=== PATIENT | female | born 1945 | race Caucasian/White ===

== ENCOUNTER → 2017-10-28 09:15 | Outpatient (CLI) | payer MEDICARE, BC, SELFPAY ==
--- NOTE | 2017-10-28 | DI.CT.S_ITS ---
PROCEDURE: CT LUMBAR SPINE WO CON INDICATIONS: LOW BACK PAIN MULTIPLE SITES TECHNIQUE: Noncontrast 3 mm thick sections acquired from the T12 level to the sacrum. Sagittal and coronal reformats were constructed. For radiation dose reduction, the following was used: automated exposure control. COMPARISON: [facility], CT, THORAX WITHOUT CONTRAST, 09/20/2015, 14:54. FINDINGS: Image quality: Excellent. Bones: No acute vertebral body compression fractures. No suspicious lytic or blastic bony lesions. Central spinal caliber is of normal overall caliber. No pars defects. No significant alignment abnormality is seen. T12-L1: Level within normal limits. L1-L2: Unremarkable. L2-L3: The disc height is relatively well-preserved. Mild generalized disc bulge is seen. No significant neural foraminal or central canal narrowing are seen. L3-L4: The disc height is relatively well-preserved. Kzuw-xp-uiegxlfw disc bulge is seen, which is eccentric to the right. There is mild right-sided and minimal left-sided neural foraminal narrowing seen. Mild central canal narrowing is seen. L4-L5: The disc height is well preserved. Mild to moderate disc bulge is seen. There is moderate bilateral neural foraminal narrowing seen, right worse than left. Moderate central canal narrowing is seen. L5-S1: The disc height is well-preserved. Mild generalized disc bulge is seen. Moderate facet joint hypertrophy is seen. There is moderate right-sided and mild to moderate left-sided neural foraminal narrowing seen. Minimal to mild central canal narrowing is seen. Soft tissues: No retroperitoneal masses or hematomas. Visualized aorta is normal in caliber. 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 IMPRESSION: Lumbar spine degenerative changes are seen, which are most prominent at the L4-L5 and L5-S1 levels. Dictated by: Jose Guadalupe Bernard M.D. on 10/28/2017 at 9:36 Approved by: Jose Guadalupe Bernard M.D. on 10/28/2017 at 9:42
== END ==
PROVIDERS: Family Provider Family Medicine; PCP Family Medicine; Visit Provider Physical Medicine & Rehabilitation
DX: M51.36 Other intervertebral disc degeneration, lumbar region (principal); M51.37 Other intervertebral disc degeneration, lumbosacral region
CPT/HCPCS: 72131

== ENCOUNTER 2018-04-01 08:52 | Day surgery (SDC) | payer MEDICARE, BC, SELFPAY ==
--- NOTE | 2018-03-26 18:54 | PM.PREOP ---
Pre-operative Note Interval Note History & Physical reviewed/Exam performed by Physician: Yes Changes to H&P: No
--- NOTE | 2018-04-01 08:36 | P.OP_ITS ---
Operative Date/Time/Diagnoses Date of procedure: 04/01/18 Time of procedure: 11:45 Procedure & Clinicians Procedure: Date of service:March Preoperative diagnoses: 1. Bilateral upper lid dermatochalasis. 2. Bilateral lower lid ectropion. 3. Cardiac pacemaker on anticoagulant. 4. Anxiety. Postoperative diagnoses: 1. Bilateral upper lid dermatochalasis 2. 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 Procedure: Bilateral upper blepharoplasty Surgeon: Emily Tello MD Complications:None Specimen: None Blood loss: Less than 3 mL Anesthesia: Local infiltration with monitored standby. Anesthesiologist: Prieto Roldan M.D. Indications: Bilateral upper lids obstructing superior vision. Preoperative external photographs taken and loss of vision to within 2 mm of marginal light reflex. Functional surgery. Procedure: In the preoperative holding area the amount skin and subcutaneous tissue to be removed was marked with indelible ink. The contours were carefully checked for symmetry and planned procedure discussed with the patient. The patient was taken to the operating room. IV sedation was given. Proparacaine drops were placed in both eyes for comfort. Local infiltration of anesthetic 2.5 cc into each upper lid, consisting of 1% xylocaine with epinephrine, normal saline and 1 cc hyluronidase was placed. This was then supplemented with full strength 2% xylocaine with epinephrine, 0.5% bupivacaine , and 1 cc hyalurondase. The face was prepped in an open manner. Attention was placed to the right upper lid. Using the previous mancia a number 15. Bard-Lito blade was used to incise a skin muscle flap. The flap was lifted and removed. Cautery was applied as needed. Contouring of the muscle belly was also performed. Exploration of the nasal and preoperneurotic fat pads were performed removal and contouring with hemostat and scissors as well as cautery were performed. The lid was then closed with running and interrupted 6 0 Vicryl sutures. Same procedure was repeated for the left upper lid. The Betadine was removed. Maxitrol ointment was placed to suture line. She returned to recovery room in stable condition. Instructions for postoperative cold packs were reviewed. Attention was placed to the lateral canthus. A 15 blade was used to make a 1 cm lateral canthotomy. The inferior canthal tendon was lysed with scissors. A tarsal strip was formed with removal of the anterior and posterior lamella and shortening of 1 mm. A superior 1 mm lid resection was also done. A 4 0 Mersilene double-armed was placed through the tarsal strip and then anchored in a double-armed fashion through the periosteum with good position. Multiple knots were tied. The lateral canthus was then reapproximated using 6 0 Vicryl interrupted sutures. The inferior punctum was also examined. It was very small and stenotic. A punctal dilator was used to enlarge it and a 3 snip procedure with scissors was performed to anatomically enlarge the punctum. It was patent to the nose. This procedure was done in identical fashion to both lids. There was minimal blood loss of less than 3 cc. She did require a bed weiss twice during the procedure for urinary discomfort. This relieved her symptoms and the procedure continued. Maxitrol ointment was placed on both eyes and she returned recovery room in stable condition. Emily Tello MD.
[2018-04-01 09:29] VITALS: BP 196/84; PULSE 73; RESP 16; TEMP 36.6; O2SAT 97
[2018-04-01 09:31] VITALS: BMI 13.6
[2018-04-01] MEDS: LACTATED RINGERS 1,000 ML 42 ML IV (09:52)
[2018-04-01] MEDS: LIDOCAINE 2% W/EPI INJ 20 ML INJ (12:17)
[2018-04-01] MEDS: LIDOCAINE 2% W/EPI 3 ML, BUPIVACAINE 0.5% (PF) 2 ML, HYALURONIDASE 150 UNIT INJ (12:17)
[2018-04-01] MEDS: LIDOCAINE 1% W/EPI 3 ML, SODIUM CHLORIDE 0.9% 2 ML, HYALURONIDASE 150 UNIT INJ (12:17)
[2018-04-01] MEDS: PROPARACAINE 0.5% OPHTH SOL 2 DROPS EYE-BOTH (12:24)
--- NOTE | 2018-04-01 13:23 | SUR.OPER ---
Patient urinated with bedpan twice during procedure.
[2018-04-01 13:44] VITALS: BP 172/72; PULSE 76; RESP 16; TEMP 36.6; O2SAT 95
== END 2018-04-01 14:12 | disposition home or self-care (01) ==
LOC: OR 08:53
PROVIDERS: Family Provider Family Medicine; PCP Family Medicine; Visit Provider Ophthalmology
PROC: (CPT 67917; principal; 2018-04-01 10:45)
PROC: (CPT 67917; 2018-04-01 10:45)
DX: H02.834 Dermatochalasis of left upper eyelid (principal); H02.831 Dermatochalasis of right upper eyelid; H02.102 Unspecified ectropion of right lower eyelid; H02.105 Unspecified ectropion of left lower eyelid; Z95.0 Presence of cardiac pacemaker; Z79.01 Long term (current) use of anticoagulants; F41.9 Anxiety disorder, unspecified; R42 Dizziness and giddiness
CPT/HCPCS: 67917; 15823; J2250; J2704; J3470

== ENCOUNTER → 2018-04-30 15:49 | Outpatient (CLI) | payer MEDICARE, BC, SELFPAY | PROVIDERS: Family Provider Family Medicine; PCP Family Medicine; Visit Provider Ophthalmology | DX: Z48.02 Encounter for removal of sutures (principal) | CPT/HCPCS: 87070; 87077; 87147; 87186; 87205 ==

== ENCOUNTER → 2018-06-22 14:07 | Outpatient (CLI) | payer MEDICARE, BC, SELFPAY | PROVIDERS: Family Provider Family Medicine; PCP Family Medicine; Visit Provider Ophthalmology | DX: Z22.322 Carrier or suspected carrier of Methicillin resistant Staphylococcus aureus (principal) | CPT/HCPCS: 87081 ==

== ENCOUNTER 2019-02-24 15:27 | Inpatient (IN) | payer MEDICARE, BC, SELFPAY ==
[2019-02-24] VITALS (9 sets, daily range): BP systolic 157–194; BP diastolic 70–98; PULSE 73–96; RESP 15–20; TEMP 36.9–37.1; O2SAT 91–100; BMI 28.7
--- NOTE | 2019-02-24 15:37 | DI.CT.S_ITS ---
PROCEDURE: CT HEAD/BRAIN WO CON INDICATIONS: SLURRED SPEECH TECHNIQUE: Noncontrast 4.5 mm thick angled axial sections acquired from the foramen magnum to the vertex, with coronal and sagittal reformats. For radiation dose reduction, the following was used: automated exposure control, adjustment of mA and/or kV according to patient size. COMPARISON: None. FINDINGS: Image quality: Excellent. CSF spaces: Basal cisterns are patent. No extra-axial fluid collections. Ventricles are normal in size and shape. Brain: No midline shift. No intracranial masses or hemorrhage. Cunha-white matter interface is normal for age except that the frontoparietal junction on the left where a region of abnormal low attenuation is present extending to the cortex with loss of cunha-white differentiation, with a maximal axial dimension estimated at up to almost 3 cm in diameter, with a craniocaudad extent of 4.2-5.4 cm. This has an appearance of a subacute area of ischemic injury, with a small focus of calcium in its inferior aspect. This may represent embolic calcified plaque in this clinical circumstance.. Skull and face: Calvarium and visualized facial bones are intact, without suspicious lesions. Sinuses: Visualized sinuses and mastoids are clear. IMPRESSION: Subacute stroke left hemisphere, within the parietal lobe cortex and extending into the deep white matter inferiorly. As noted there is a small focus of calcification associated with the inferior border of this area of ischemic injury, potentially an embolic calcified plaque fragment. Dictated by: Aaron Pineda M.D. on 02/24/2019 at 16:01 Approved by: Aaron Pineda M.D. on 02/24/2019 at 16:05
--- NOTE | 2019-02-24 15:40 | DI.CT.S_ITS ---
PROCEDURE: CT ANGIO HEAD AND NECK INDICATIONS: expressive aphasia TECHNIQUE: Pre-contrast 4.5 mm thick sections acquired from the foramen magnum to the vertex. After the administration of intravenous contrast, 1 mm thick sections acquired from the aortic arch through the [place]. Post-contrast 4.5 mm thick sections then re-acquired from the foramen magnum to the vertex. 3-dimensional rbkqckb-yfbkcmsau-zweespzvef (MIP) and/or volume rendering reformats were acquired of the central intracranial vasculature and neck separately. COMPARISON: [facility], CT, CT HEAD/BRAIN WO CON, 02/24/2019, 15:41. FINDINGS: Image quality: Excellent. BRAIN: CSF spaces: Ventricles are normal in size and shape. Basal cisterns are patent. No extra-axial fluid collections. Brain: No midline shift. No intracranial bleeds or masses. Cunha-white matter interface appears unchanged from the CT scanning performed without contrast earlier today which identified an area of subacute stroke within the anterior parietal lobe, with an associated punctate calcification at its inferior border suspicious for representing embolic calcified plaque in this clinical circumstance. No hemorrhage in this area of stroke has developed. Skull and face: Calvarium and facial bones appear intact, without suspicious lesions. Orbits appear normal. Sinuses: Sinuses and mastoids are clear. HEAD CT ANGIOGRAPHY: Anterior circulation: Intracranial internal carotid arteries are normal in size and flow. The flow within the paired anterior cerebral arteries is normal and symmetric. The flow within the middle cerebral arteries is normal and symmetric. The anterior communicating artery is seen. No aneurysms are seen. The focus of calcium described above and during the prior noncontrast CT scanning at the inferior aspect of the area of subacute stroke can be identified by this study and on CT angiographic imaging is seen to exactly superimposed on the course of a vessel see series 12 image 17. Posterior circulation: Visualized portions of the vertebral arteries demonstrate normal caliber, and join to form a normal appearing basilar artery. Flow within the posterior cerebral arteries is normal and symmetric. No aneurysms are seen. NECK CT ANGIOGRAPHY: Carotid system: The great vessels demonstrate a conventional anatomy as they arise from the aortic arch. The origins of the common carotid arteries appear patent. The common carotid arteries demonstrate normal caliber and courses. The bifurcation regions are both widely patent. The internal carotid arteries demonstrate normal calibers and courses. Posterior circulation: The origins of the vertebral arteries both appear widely patent. The more superior extracranial portions of both vertebral arteries also demonstrate normal courses and calibers. They join to form a normal appearing basilar artery. Soft tissues: Visualized neck soft tissues demonstrate no suspicious abnormalities. Bones: No suspicious bony lesions. Visualized cervical spine appears normally aligned. IMPRESSION: Subacute stroke as was previously identified on noncontrast imaging. No area of carotid or vertebral arterial stenosis is found. Minimal calcific plaquing at the carotid arteries bilaterally. As discussed above there is a single focus of calcium measuring only approximately 1.5-2 mm in diameter exactly superimposed on the course of a contrast-enhanced blood vessel leading to the calcification, consistent with a small embolic focus of calcific plaque. This is located at the inferior border of the area of ischemic injury. No additional focus of arterial bland or calcific embolus is found. No intracranial hemorrhage. No appreciable mass effect at this time. Any quantitative measurements of stenosis were performed using NASCET criteria. Dictated by: Aaron Pineda M.D. on 02/24/2019 at 17:38 Approved by: Aaron Pineda M.D. on 02/24/2019 at 17:47
[2019-02-24 16:09] LABS: Add Manual Diff / Slide Review NO; Basophils Absolute Auto 0 /uL (0-100); Basophils Percent Auto 0.5 % (0-2); Eosinophils Absolute Auto 100 /uL (0-450); Eosinophils Percent Auto 1.2 % (2-4); Hematocrit 44.6 % (36-46); Hemoglobin 15.5 g/dL (12.0-16.0); Lymphocytes Absolute Auto 2400 /uL (1100-4500); Lymphocytes Percent Auto 39.5 % (25-40); Mean Corpuscular HGB Conc 34.7 % (30-36); Mean Corpuscular Hemoglobin 32.5 PG (26-34); Mean Corpuscular Volume 93.7 fL (80-100); Monocytes Absolute Auto 600 /uL (0-900); Monocytes Percent Auto 10.3 % (3-14); Neutrophils Absolute Auto 2900 /uL (1500-7000); Neutrophils Percent Auto 48.5 % (50-75); Platelet Count 137 X10^3/uL (150-400); Red Blood Cell Count 4.76 X10^6/uL (4.0-5.2); Red Cell Distribution Width 12.3 % (11.6-14.8)
--- NOTE | 2019-02-24 16:20 | ED_ITS ---
HPI - Neuro Symptoms/Deficit General Chief Complaint: Neuro Symptoms/Deficit Stated Complaint: spouse concerned of speech deficits and stroke Time Seen by Provider: 02/24/19 15:39 Source: patient and family Mode of arrival: Ambulatory Limitations: no limitations History of Present Illness HPI Narrative: This is a 73-year-old female who comes in with complaint of speech deficits and issues. Patient and her noticed this morning at about 11:00 a.m. that she was having hard time with her words. Her describes that she could not express herself very well and she would have to do word searching occasionally get words wrong. States sort of abdomen flow throughout today and they finally came in today because it was not improving. Patient denies any headache, no vision changes, no chest pain or shortness of breath, no nausea, no vomiting she denies any numbness, tingling or weakness in her extremities. Her did not notice any issues with movement, no facial droop or other changes besides the expressive aphasia. She has a history of a pacemaker, she takes metoprolol daily. She does not take any blood thinners. Denies any other history besides her pacemaker placement. No tobacco, occasional alcohol, no illicit. Primary care is Dr. Jacobo Castillo. On Anticoagulants: No Related Data Home Medications Medication Instructions Recorded Confirmed dronedarone [Multaq] 400 mg PO DAILY 04/01/18 02/24/19 fluticasone propionate 1 spray INTRANASAL PRN PRN 04/01/18 02/24/19 loperamide [Imodium A-D] 2 cap PO Q2-4H PRN 04/01/18 02/24/19 conj estrog-medroxyprogest kayla 1 tab PO DAILY 02/24/19 02/24/19 [Premphase] Allergies Allergy/AdvReac Type Severity Reaction Status Date / Time Penicillins Allergy Severe Swelling Verified 04/01/18 09:28 Review of Systems Review of Systems ROS Unobtainable: All systems reviewed & are unremarkable except as noted in HPI and below Patient History Medical History (Updated 02/24/19 @ 16:39 by Maya Latif DO) Pacemaker (Acute) Social History household members: spouse Smoking Status: Former smoker Smoking Status: Former smoker Exam Narrative Exam Narrative: GEN: well nourished, well appearing female, alert and oriented x 3, patient appears to be in mild distress. HEENT: Atraumatic, pupils are equal round reactive to light, extraocular movements are intact, nares are clear, TMs are clear with no fluid, there is no conjunctival pallor. Throat is clear without any exudates, erythema, tonsillar enlargement or uvular deviation, no facial droop HEART: Regular rate and rhythm without murmur, clicks, rubs. Pulses are equal in upper and lower extremities LUNGS:Lungs clear to auscultation, no wheezes, rales, crackles, chest moves symmetrically ABD:bowel sounds normal, soft, non-tender, no guarding, rebound, rigidity, no masses noted, no hepatosplenomegaly :No CVA tenderness MSCL: Non-tender, no muscle atrophy, muscles strength 5/5 upper and lower extremities, full range of motion, normal gait NEURO:CN 2-12 intact, sensation normal, reflexes 2/4 upper and lower extremities. finger nose finger test normal, heel lam test normal Initial Vital Signs Initial Vital Signs: Vital Signs Temperature 98.4 F 02/24/19 15:31 Pulse Rate 81 02/24/19 15:31 Respiratory Rate 16 02/24/19 15:31 Blood Pressure 188/86 H 02/24/19 15:31 Pulse Oximetry 100 02/24/19 15:31 Scores NIH Stroke Scale Level of Conciousness: Alert, keenly responsive Ask month/age: Answers both questions correctly. Open/close eyes, close hand: Performs both tasks correctly Best gaze horizontal: Normal Visual mccray: No visual loss Facial palsy: Normal symetrical movement Left arm drift: No drift for full 10 sec Right arm drift: No drift for full 10 sec Left leg drift: No drift for full 10 sec Right leg drift: No drift for full 10 sec Limb ataxia: Absent Sensory on face/arms/legs: Normal, no sensory loss Best language: Mild to moderate, slurs some words Dysarthria: Normal Extinction or inattention: No abnormality Total NIH Stroke scale score: 1 Course Orders Ordered: ED Orders 02/24/19 15:37 CT head/brain wo con Stat 02/24/19 15:39 EKG-12 Lead Stat 02/24/19 15:40 CT angio head and neck Stat 02/24/19 16:00 Basic Metabolic Panel Stat Complete Blood Count AUTO DIFF Stat Partial Thromboplastin Time Stat Prothrombin Time INR Stat Troponin I Stat Sodium Chloride (Normal Saline 0.9%) 1,000 mls @ 150 mls/hr IV CONT KIM Last Infusion: 02/24/19 19:26 Dose: 150 mls/hr Documented by: Admin: 02/24/19 16:28 Dose: 150 mls/hr Documented by: TANGELA Discontinued Medications Aspirin (Aspirin Chew) 324 mg PO NOW ONE Stop: 02/24/19 16:38 Last Admin: 02/24/19 16:54 Dose: 324 mg Documented by: ANGEL Dextrose ([email or web address]) 25 gm IV NOW ONE Stop: 02/24/19 16:17 Last Admin: 02/24/19 16:28 Dose: 25 gm Documented by: TANGELA Vital Signs Vital signs: Vital Signs - 8 hr 02/24/19 15:31 02/24/19 16:00 02/24/19 17:22 Temperature 98.4 F Pulse Rate 81 82 80 Respiratory Rate 16 16 18 Blood Pressure 188/86 H Blood Pressure [Left Arm] 187/72 H 181/73 H Pulse Oximetry 100 100 100 02/24/19 17:35 02/24/19 18:00 02/24/19 18:30 Temperature Pulse Rate 96 H 75 73 Respiratory Rate 17 16 15 Blood Pressure Blood Pressure [Left Arm] 194/86 H 184/73 H 168/81 H Pulse Oximetry 91 96 98 02/24/19 19:00 Temperature Pulse Rate 84 Respiratory Rate 19 Blood Pressure Blood Pressure [Left Arm] 178/70 H Pulse Oximetry 100 MDM - Neuro Symptoms/Deficit Lab Data Attestation: I reviewed the patient's lab results. Result diagrams: 02/24/19 16:00 02/24/19 16:00 Labs: Lab Results 02/24/19 02/24/19 02/24/19 Range/Units 16:00 16:00 16:00 WBC 6.0 (4.5-11.0) X10^3/uL RBC 4.76 (4.0-5.2) X10^6/uL Hgb 15.5 (12.0-16.0) g/dL Hct 44.6 (36-46) % MCV 93.7 (80-100) fL MCH 32.5 (26-34) PG MCHC 34.7 (30-36) % RDW 12.3 (11.6-14.8) % Plt Count 137 L (150-400) X10^3/uL Neut % (Auto) 48.5 L (50-75) % Lymph % (Auto) 39.5 (25-40) % [place] % (Auto) 10.3 (3-14) % Eos % (Auto) 1.2 L (2-4) % Baso % (Auto) 0.5 (0-2) % Neut # (Auto) 2900 (0876-6309) /uL Lymph # (Auto) 2400 (6895-3486) /uL [place] # (Auto) 600 (0-900) /uL Eos # (Auto) 100 (0-450) /uL Baso # (Auto) 0 (0-100) /uL PT 11.0 (10.1-12.7) SECONDS INR 1.0 (0.9-1.3) APTT 28 (26.4-36.2) SECONDS Sodium 141 (137-145) mmol/L Potassium 3.7 (3.4-5.1) mmol/L Chloride 104 (98-107) mmol/L Carbon Dioxide 28 (22-32) mmol/L BUN 14 (7-17) mg/dL Creatinine 0.70 (0.52-1.04) mg/dL Estimated GFR > 60.0 (>60) mL/min BUN/Creatinine Ratio 20.0 (6-22) Glucose 89 (80-110) mg/dL Calcium 9.4 (8.4-10.2) mg/dL Troponin I 0.019 (0.01-0.034) ng/mL Point of Care Testing Glucose POC [address] scan - head: Radiologist's impression: Chart Viewer Diagnostics DATE TYPE STATUS AUTHOR Hx 02/24/19 15:37 Aaron Pineda 10/28/17 00:00 Jose Guadalupe Bernard Merry 73, F0 1945 [facility], [facility] ED R06 90.718kg Neuro Symptoms/Deficit Search Chart No Data to Display Swelling No Data to Display Today 15:31 Cathleen Whitney F [address] [address] [address] Scan Report Signed Patient: Khurram Whitney#: [id number] : 6Acct:[id number] Age/Sex: 73 / FDate of Service: 02/24/19 Loc: ED Accession Number: [id number] Procedure: CT head/brain wo con Ordering Provider: Maya Latif D.O. PROCEDURE: CT HEAD/BRAIN WO CON INDICATIONS: SLURRED SPEECH TECHNIQUE: Noncontrast 4.5 mm thick angled axial sections acquired from the foramen magnum to the vertex, with coronal and sagittal reformats. For radiation dose reduction, the following was used: automated exposure control, adjustment of mA and/or kV according to patient size. COMPARISON: None. FINDINGS: Image quality: Excellent. CSF spaces: Basal cisterns are patent. No extra-axial fluid collections. Ventricles are normal in size and shape. Brain: No midline shift. No intracranial masses or hemorrhage. Cunha-white matter interface is normal for age except that the frontoparietal junction on the left where a region of abnormal low attenuation is present extending to the cortex with loss of cunha-white differentiation, with a maximal axial dimension estimated at up to almost 3 cm in diameter, with a craniocaudad extent of 4.2-5.4 cm. This has an appearance of a subacute area of ischemic injury, with a small focus of calcium in its inferior aspect. This may represent embolic calcified plaque in this clinical circumstance.. Skull and face: Calvarium and visualized facial bones are intact, without suspicious lesions. Sinuses: Visualized sinuses and mastoids are clear. IMPRESSION: Subacute stroke left hemisphere, within the parietal lobe cortex and extending into the deep white matter inferiorly. As noted there is a small f ocus of calcification associated with the inferior border of this area of ischemic injury, potentially an embolic calcified plaque fragment. Dictated by: Aaron Pineda M.D. on 02/24/2019 at 16:01 Approved by: Aaron Pineda M.D. on 02/24/2019 at 16:05 CTA head and neck: Radiologist's impression: [place] [address] CT Scan Report Signed Patient: Khurram Whitney#: [id number] : 6Acct:[id number] Age/Sex: 73 / FDate of Service: 02/24/19 Loc: ED Accession Number: [id number] Procedure: CT angio head and neck Ordering Provider: Maya Latif D.O. PROCEDURE: CT ANGIO HEAD AND NECK INDICATIONS: expressive aphasia TECHNIQUE: Pre-contrast 4.5 mm thick sections acquired from the foramen magnum to the vertex. After the administration of intravenous contrast, 1 mm thick sections acquired from the aortic arch through the [place] of [place]. Post-contrast 4.5 mm thick sections then re- acquired from the foramen magnum to the vertex. 3-dimensional fesccyn-dufejrnbs-pggvtflhjj (MIP) and/or volume rendering reformats were acquired of the central intracranial vasculature and neck separately. COMPARISON: [facility], CT, CT HEAD/BRAIN WO CON, 02/24/2019, 15:41. FINDINGS: Image quality: Excellent. BRAIN: CSF spaces: Ventricles are normal in size and shape. Basal cisterns are patent. No extra-axial fluid collections. Brain: No midline shift. No intracranial bleeds or masses. Cunha-white matter interface appears unchanged from the CT scanning performed without contrast earlier today which identified an area of subacute stroke within the anterior parietal lobe, with an associated punctate calcification at its inferior border suspicious for representing embolic calcified plaque in this clinical circumstance. No hemorrhage in this area of stroke has developed. Skull and face: Calvarium and facial bones appear intact, without suspicious lesions. Orbits appear normal. Sinuses: Sinuses and mastoids are clear. HEAD CT ANGIOGRAPHY: Anterior circulation: Intracranial internal carotid arteries are normal in size and flow. The flow within the paired anterior cerebral arteries is normal and symmetric. The flow within the middle cerebral arteries is normal and symmetric. The anterior communicating artery is seen. No aneurysms are seen. The focus of calcium described above and during the prior noncontrast CT scanning at the inferior aspect of the area of subacute stroke can be identified by this study and on CT angiographic imaging is seen to exactly superimposed on the course of a vessel see series 12 image 17. Posterior circulation: Visualized portions of the vertebral arteries demon strate normal caliber, and join to form a normal appearing basilar artery. Flow within the posterior cerebral arteries is normal and symmetric. No aneurysms are seen. NECK CT ANGIOGRAPHY: Carotid system: The great vessels demonstrate a conventional anatomy as they arise from the aortic arch. The origins of the common carotid arteries appear patent. The common carotid arteries demonstrate normal caliber and courses. The bifurcation regions are both widely patent. The internal carotid arteries demonstrate normal calibers and courses. Posterior circulation: The origins of the vertebral arteries both appear widely patent. The more superior extracranial portions of both vertebral arteries also demonstrate normal courses and calibers. They join to form a normal appearing basilar artery. Soft tissues: Visualized neck soft tissues demonstrate no suspicious abnormalities. Bones: No suspicious bony lesions. Visualized cervical spine appears normally aligned. IMPRESSION: Subacute stroke as was previously identified on noncontrast imaging. No area of carotid or vertebral arterial stenosis is found. Minimal calcific plaquing at the carotid arteries bilaterally. As discussed above there is a single focus of calcium measuring only approximately 1.5-2 mm in diameter exactly superimposed on the course of a contrast-enhanced blood vessel leading to the calcification, consistent with a small embolic focus of calcific plaque. This is located at the inferior border of the area of ischemic injury. No additional focus of arterial bland or calcific embolus is found. No intracranial hemorrhage. No appreciable mass effect at this time. Any quantitative measurements of stenosis were performed using NASCET criteria. Dictated by: Aaron Pineda M.D. on 02/24/2019 at 17:38 Approved by: Aaron Pineda M.D. on 02/24/2019 at 17:47 ECG Data Attestation: I personally reviewed and interpreted this ECG as follows: Interpretation: Paced rhythm, rate of 79 P are 185 QRS of 142 and QTC of 450. MDM Narrative Medical decision making narrative: Patient comes in outside window for tPA initially and hypoglycemic. Patient was given sugar and glucose improved, glucose continues to maintain in the 70's. Patient's CT shows a subacute infarct chewing she is not a tPA candidate at all. Patient is slightly hypertensive. CTA was sent to [facility] and reviewed with tele stroke and Dr. Resendiz, there is no obvious occlusion and patient is not a code IR candidate at this point so he does not feel she needs transfer. He would recommend typical workup for CVA and that would be appropriate for patient to stay here. I spoke with Dr. Sawant who accepts for observation. Patient received asa 325mg in department. Discharge Plan Departure Patient Disposition: Admitted as Observation Clinical Impression: Cerebrovascular accident, Hypoglycemia Discharge Date/Time: 02/24/19 19:26 Referrals: Jacobo Castillo MD [Primary Care Provider] - Admit Date/Time: 02/24/19 19:11 Admit Provider: Juan Ramon Sawant
[2019-02-24 16:21] LABS: PTT Partial Thromboplastin Tim 28 SECONDS (26.4-36.2)
[2019-02-24 16:23] LABS: Blood Urea Nitrogen 14 mg/dL (7-17); Calcium 9.4 mg/dL (8.4-10.2); Carbon Dioxide 28 mmol/L (22-32); Chloride 104 mmol/L (98-107); Estimated Glomerular Filt Rate > 60.0 mL/min (>60); Glucose 89 mg/dL (80-110); Potassium 3.7 mmol/L (3.4-5.1); Sodium 141 mmol/L (137-145)
[2019-02-24 16:25] LABS: HEMOLYSIS 53 (0-50)
[2019-02-24] MEDS: DEXTROSE 50 % IN WATER 25 GM/50 ML SYRINGE IV (16:28)
[2019-02-24] MEDS: SODIUM CHLORIDE 0.9% 1,000 ML 150 ML IV (16:28)
[2019-02-24 16:35] LABS: Troponin I 0.019 ng/mL (0.01-0.034)
[2019-02-24] MEDS: ASPIRIN 81 MG CHEW TAB 324 MG PO (16:54)
--- NOTE | 2019-02-24 17:28 | PC.NURSE ---
Significant other: Baljit Shepherd [phone]
--- NOTE | 2019-02-24 19:54 | DI.ECHO.S_ITS ---
[facility]---------+ [facility] +---------+ : : [address] [place] : : : : [id number] : : : : Phone: [phone] Echocardiogram Report + + :Name: MYRTLE LYNCH Study Date: 02/25/2019 Height: 70 in : :[facility] Weight: 200 lb : : Gender: Female BSA: 2.1 m2 : :: 1945 Age: 73 yrs BP: 154/72 mmHg: :Reason For Study: CVA : : Performed By: [facility] Staff : :Referring: RAMIREZ LLYE : + + Interpretation Summary This is technically difficult study. Left ventricular wall thickness is moderately increased. The left ventricular ejection fraction is normal. There is mild apical hypokinesis which appears to be related to RV pacing. There are no other obvious focal wall motion abnormalities. There is no thrombus. Diastolic parameters suggest a relaxation abnormality of the left ventricle, consistent with probable normal filling pressures. The right ventricle is normal in size and function. Moderate MAC. No hemodynamically significant valvular abnormalities. -Overall this echo shows changes related to hypertensive heart disease without obvious cardiac source of embolism. Procedure: A two-dimensional transthoracic echocardiogram with color flow and Doppler was performed. The study quality was technically adequate. A contrast injection of Definity was performed to improve assessment of LV function. There is no prior echocardiogram noted for this patient. The patient has a paced rhythm. Left Ventricle: The left ventricle is normal in size. Left ventricular wall thickness is moderately increased. There is no thrombus. The ejection fraction is estimated to be 55-60%. The left ventricular ejection fraction is normal. There is a mild dyssynchronous contraction pattern due to the paced rhythm. There are no other obvious focal wall motion abnormalities. There is mild apical hypokinesis which appears to be related to RV pacing. Diastolic parameters suggest a relaxation abnormality of the left ventricle, consistent with probable normal filling pressures. Right Ventricle: The right ventricle is normal in size and function. There is a pacemaker lead in the right ventricle. Atria: The left atrium is mildly dilated. Right atrial size is normal. There is no Doppler evidence for an interatrial shunt. Mitral Valve: The mitral valve leaflets appear mildly thickened, but open well. There is moderate mitral annular calcification. There is trace mitral regurgitation. Aortic Valve: The aortic valve opens well. The aortic valve is not well visualized. The aortic valve is grossly normal. No aortic regurgitation is present. Tricuspid Valve: The tricuspid valve is normal in structure and function. There is trace tricuspid regurgitation. Pulmonary artery pressures cannot be estimated because of the lack of a measurable TR jet velocity but the IVC suggests a CVP of around 3 mmHg. Pulmonic Valve: The pulmonic valve is not well visualized. There is trace pulmonic regurgitation. Great Vessels: The aortic root is normal size. The dimensions of the ascending aorta are normal. The pulmonary artery is normal size. The IVC is of normal diameter and collapses greater than 50% with a sniff. This suggests a low right atrial pressure of 3 mm Hg. Pericardium/ Pleura There is a trivial pericardial effusion noted. There is no pleural effusion. MMode/2D Measurements & Calculations LVIDd: 4.0 cm LVOT diam: 2.0 cm LVIDs: 2.9 cm Ao root diam: 2.9 cm FS: 28.6 % Aortic Jxn: 2.5 cm EPSS: 0.74 cm IVSd: 1.5 cm LVPWd: 1.4 cm LV neal. diameter/BSA (cm/m^2): 1.9 LV sys. diameter/BSA (cm/m^2): 1.4 LA A2 area: 21.4 cm2 RA long axis: 5.5 cm LA A4 area: 18.2 cm2 RA area: 15.9 cm2 LA length (vol): 4.6 cm RA vol: 39.2 ml LA vol: 71.3 ml RA : 18.8 ml/m2 LA vol index: 34.2 ml/m2 Doppler Measurements & Calculations Ao V2 max: 129.0 cm/sec LVOT Max Han: 95.2 cm/sec Ao V2 mean: 97.0 cm/sec LV V1 max P.6 mmHg Ao max P.7 mmHg LV V1 VTI: 21.3 cm Ao mean P.1 mmHg DAVE(I,D): 2.6 cm2 Ao V2 VTI: 26.9 cm DAVE(V,D): 2.4 cm2 sev ratio: 0.79 DAVE indexed to BSA (cm^2/m^2): 1.2 MV E max han: 72.9 cm/sec TR max han: 214.1 cm/sec MV A max han: 116.0 cm/sec TR max P.3 mmHg MV E/A: 0.63 PA V2 max: 81.8 cm/sec Med Peak E' Han: 5.4 cm/sec PA V2 mean: 58.3 cm/sec E/E' med: 13.6 PA mean P.5 mmHg Lat Peak E' Han: 5.5 cm/sec PA Accel Time: 0.09 sec E/E' lat: 13.1 E/e' average: 13.4 MV dec time: 0.23 sec SV(LVOT): 69.4 ml Electronically signed by: Fox Salinas M.D. on Reading Physician:02/25/2019 04:19 PM
[2019-02-24] MEDS: SODIUM CHLORIDE 0.9% 1,000 ML 100 ML IV (20:02)
[2019-02-24 20:10] LABS: Magnesium 2.2 mg/dL (1.6-2.3)
--- NOTE | 2019-02-24 22:02 | PM.HP.1 ---
History of Present Illness History of Present Illness Date Patient Seen: 02/24/19 Time Patient Seen: 21:50 Chief complaint: spouse concerned of speech deficits and stroke Narrative: Ms Cathleen Whitney is a 73-year-old right handed female with a history significant for atrial fibrillation, status post pacemaker implantation, on hormone replacement therapy who presents to to the emergency department for difficulty speaking. The patient's noticed difficulty with word finding this morning at 11:00 a.m. that persisted without improvement prompting him to bring her to the ER at 3:39 p.m.. The patient did report an episode chest pain last night for which she did not seek attention. She denies complaints headaches or vision changes has no chest pain at this time and denies palpitations. She has no nausea vomiting or abdominal pain. She describes no difficulty walking or complaints of numbness or tingling. She denies changes in bowel or bladder habits. Upon arrival to the ER the patient had a temperature of 98.4?, heart rate of 81, hypertensive 188/86, respirations 16 saturating 100% on room air. The patient underwent a CT of the head followed by a CT angio of the head and neck which identifies a sub acute CVA of the left anterior parietal lobe extending deep into the white matter inferiorly with an embolic appearing calcified plaque. The patient had glucose evaluated upon arrival which is found to be 62 for which she received 25 g of dextrose IV. On CBC she has a white count of 6.0, hemoglobin of 15.5 and hematocrit of 446 and platelets of 113. On coagulation she has a PT of 11.0 with INR 1.0 and PTT of 28. Her electrolytes are all within limits with a BUN of 14 and creatinine 0.7. Troponin is evaluated and found to be 0.019 had EKG which reveals sinus rhythm with a rate of 79 with ventricular pacing. The patient is given aspirin 324 mg p.o. in the ER. She is admitted to the medicine service for further evaluation of stroke. Patient History Medical History (Updated 02/24/19 @ 22:12 by AQUILINO Jones) Pacemaker (Acute) Paroxysmal atrial fibrillation (Acute) Surgical History (Updated 02/24/19 @ 22:12 by AQUILINO Jones) History of permanent cardiac pacemaker placement (Acute) Family & Social History Family History (Updated 02/24/19 @ 22:13 by AQUILINO Jones) Father Cancer Mother Parkinson's disease Sister Cancer Social History: household members spouse Prior Living Arrangements House Safety & Behavioral: Feels Safe in Current Yes Environment Been Physically Hurt or No Threatened By a Person Suicidal Ideation Description None Suicide Plan Description No Plan Tobacco & Substance use: Smoking Status Former smoker alcohol intake current alcohol intake frequency holiday/special occasion Substance Use Type does not use Comment: Patient is and lives in a single family home. Her father from cancer and her mother had Parkinson's for the last 15 years of her life. She has 1 sister has cancer another sister whom she does not know her health status. She has no children. Smoking: The patient smoked for 1-2 packs per day for 50 years. Alcohol: Patient endorses drinking alcohol approximately 3 times per week. Substance use: Patient endorses uses CBD for joint pains. Advanced directives: The patient has no formal advanced directive but states her desire to be FULL CODE. She designates her Lul to be her surrogate decision maker. Meds Home Medications and Allergies Home Medications Medication Instructions Recorded Confirmed Type dronedarone [Multaq] 400 mg PO BID 04/01/18 02/24/19 History fluticasone propionate 1 spray INTRANASAL PRN PRN 04/01/18 02/24/19 History loperamide [Imodium A-D] 2 cap PO Q2-4H PRN 04/01/18 02/24/19 History conj estrog-medroxyprogest kayla 1 tab PO DAILY 02/24/19 02/24/19 History [Premphase] Allergies Allergy/AdvReac Type Severity Reaction Status Date / Time Penicillins Allergy Severe Swelling Verified 04/01/18 09:28 Review of Systems Review of Systems Narrative: GENERAL APPEARANCE: well developed, well nourished, in no acute distress. HEENT: Normocephalic, PERRLA, conjunctiva clear, EOMs intact without nystagmus, no sinus tenderness to percussion, no rhinorrhea, mucous membranes are moist and pink without lesions or exudate. NECK/THYROID: neck supple, no JVD, no carotid bruit, no thyromegaly, trachea midline. LYMPH NODES: no cervical or supraclavicular lymphadenopathy. SKIN: [place], warm and dry, no suspicious lesions, no rashes, ulcerations or petechiae. HEART: regular rate and rhythm, S1-S2, no murmur, no rubs or gallops, brisk capillary refill, no edema LUNGS: clear to auscultation bilaterally, no coarseness crackles or wheezing, no cough present CHEST: Symmetrical movement, no accessory muscle use, no pain to AP and lateral compression. ABDOMEN: Soft, no distention, no abdominal tenderness, no guarding or peritoneal signs, no organomegaly, no flank or suprapubic tenderness, active bowel tones. BACK: Normal curvature, nontender to palpation, no CVA tenderness on percussion EXTREMITIES: moves all extremities, strength is 5/5 and symmetrical, no deformities or joint effusions. NEUROLOGIC: AAO x4, no focal neurologic deficits, cranial nerves II-XII grossly intact, sensation intact to light touch, hearing grossly normal to speech. PSYCH: Good judgment, good insight, linear thought process, cooperative, appropriate with stable behavior Exam Vital Signs (past 8 hours): - 02/24/19 15:31 02/24/19 16:00 02/24/19 17:22 Temperature 98.4 F Pulse Rate 81 82 80 Respiratory Rate 16 16 18 Blood Pressure 188/86 H Blood Pressure [Left Arm] 187/72 H 181/73 H Pulse Oximetry 100 100 100 02/24/19 17:35 02/24/19 18:00 02/24/19 18:30 Temperature Pulse Rate 96 H 75 73 Respiratory Rate 17 16 15 Blood Pressure Blood Pressure [Left Arm] 194/86 H 184/73 H 168/81 H Pulse Oximetry 91 96 98 02/24/19 19:00 02/24/19 19:35 Temperature 98.5 F Pulse Rate 84 80 Respiratory Rate 19 20 Blood Pressure 157/98 H Blood Pressure [Left Arm] 178/70 H Pulse Oximetry 100 98 Oxygen Delivery Method Room Air Oxygen Flow Rate 0 Narrative Exam Narrative: GENERAL APPEARANCE: well developed, well nourished, mildly agitated, anxious HEENT: Normocephalic, no ptosis, PERRLA, conjunctiva clear, EOMs intact without nystagmus, no facial asymmetry, mucous membranes are moist and pink without lesions or exudate. NECK/THYROID: neck supple, no JVD, no carotid bruit, no thyromegaly, trachea midline. LYMPH NODES: no cervical or supraclavicular lymphadenopathy. SKIN: [place], warm and dry, no visible lesions or rashes, ulcerations or petechiae. HEART: regular rate and rhythm, S1-S2, no murmur, no rubs or gallops, brisk capillary refill, no edema LUNGS: clear to auscultation bilaterally, no coarseness crackles or wheezing, no cough present CHEST: Symmetrical movement, no accessory muscle use. ABDOMEN: Soft, no distention, no abdominal tenderness, no organomegaly, no flank tenderness, active bowel tones. EXTREMITIES: moves all extremities, team lead strength is 5/5 and symmetrical, no deformities or joint effusions, no extremity drift NEUROLOGIC: AAO person place and surroundings, unable to state the month, impaired cognition, significant expressive aphasia, cranial nerves II-XII grossly intact, sensation intact to light touch, hearing grossly normal to speech. PSYCH: Impaired insight, anxious, suspicious, will cooperate with exam and interventions with repeated explanation. Objective Labs Result Diagrams: 02/24/19 16:00 02/24/19 16:00 Labs: Laboratory Results - last 24 hr 02/24/19 02/24/19 02/24/19 16:00 16:00 16:00 WBC 6.0 RBC 4.76 Hgb 15.5 Hct 44.6 MCV 93.7 MCH 32.5 MCHC 34.7 RDW 12.3 Plt Count 137 L Neut % (Auto) 48.5 L Lymph % (Auto) 39.5 [place] % (Auto) 10.3 Eos % (Auto) 1.2 L Baso % (Auto) 0.5 Neut # (Auto) 2900 Lymph # (Auto) 2400 [place] # (Auto) 600 Eos # (Auto) 100 Baso # (Auto) 0 PT 11.0 INR 1.0 APTT 28 Sodium 141 Potassium 3.7 Chloride 104 Carbon Dioxide 28 BUN 14 Creatinine 0.70 Estimated GFR > 60.0 BUN/Creatinine Ratio 20.0 Glucose 89 Calcium 9.4 Magnesium Troponin I 0.019 02/24/19 16:00 WBC RBC Hgb Hct MCV MCH MCHC RDW Plt Count Neut % (Auto) Lymph % (Auto) [place] % (Auto) Eos % (Auto) Baso % (Auto) Neut # (Auto) Lymph # (Auto) [place] # (Auto) Eos # (Auto) Baso # (Auto) PT INR APTT Sodium Potassium Chloride Carbon Dioxide BUN Creatinine Estimated GFR BUN/Creatinine Ratio Glucose Calcium Magnesium 2.2 Troponin I Assessment & Plan Assessment & Plan narrative: This is a 73-year-old female patient who presents to the ER with 4 hours of expressive aphasia secondary to left anterior parietal embolic CVA. 1. Embolic stroke, acute versus subacute, present on admission, active. -last known normal was 11:00 a.m. this morning. Symptoms persisted prompting the patient's bring her to the ER at 3:39 this afternoon. -head CT and CT angio of the head and neck finds it left anterior parietal lobe infarct extending deep and to the white matter inferiorly with embolic appearing calcified plaque. -tele neuro was consulted through the ER and is not a candidate for tPA or interventional procedure. -patient does have history of atrial fibrillation and does describe episode of chest pain last night but denies chest pain or palpitations today, patient will be on telemetry. -patient on HRT, will discontinue Premphase. -patient received aspirin 324 mg in the emergency department, will continue aspirin 81 mg daily. -ordered atorvastatin 20 mg daily. -contraindication for MRI with an implanted pacemaker. CT has adequately defined her stroke injury. -echocardiogram in the morning. -Patient passed bedside swallow evaluation, Speech therapy to consult and evaluate -PT and OT to consult and evaluate. -will obtian TSH level with reflex to T4 and HgA1c. 2. Paroxysimal atrial fibrillation, chronic, in sinus rhythum on admission, active -patient reports episode of chest pain last night. Denies chest pain or palpations, no shortness of breath or nausea today. -12 lead EKG in sinus rhythm with ventricular pacing. -echocardiogram in the morning. -continue home regimen of dronedarone 400 mg twice daily. 3. Elevated blood pressure without diagnosis of hypertension, unknown if acute or chronic, present on admission, active. -blood pressure on admission is 188/86 subsequent reading on the floor 157/98. -at this time will allow permissive hypertension. -labetalol 10 mg IV as needed for systolic pressure greater than 220 or diastolic greater than 120. -post 48 hours may consider initiation of antihypertensive therapy with ARB. 4. Hypoglycemia, acute, present on admission, active. -upon arrival in the ER the patient had a glucose of 62 and received 25 g of dextrose. -subsequent fingerstick blood sugars show persistent blood sugars in the 70s. -will change normal saline to D5 NS at 84 cc/hour. -fingerstick blood sugars will continue every 6 hours until morning. VTE prophylaxis: SCDs and Lovenox Diet: NPO, post passing swallow a pill advanced to heart healthy. Patient is admitted to the hospital due to the severity of her symptoms and risk for potential complications and adverse events. The patient is admitted as observation with expected length of stay to be less than 2 midnights. Scores GCS [place] coma scale eye opening: Spontaneous Christophe coma scale verbal response: Confused [place] coma scale motor response: Obey commands [place] coma scale total score: 14 NIHSS Level of Conciousness: Alert, keenly responsive Ask month/age: Answers one question correctly, intubated follow commands Open/close eyes, close hand: Performs both tasks correctly Best gaze horizontal: Normal Visual mccray: No visual loss Facial palsy: Normal symetrical movement Left arm drift: No drift for full 10 sec Right arm drift: No drift for full 10 sec Left leg drift: No drift for full 5 sec Right leg drift: No drift for full 5 sec Limb ataxia: Absent Sensory on face/arms/legs: Normal, no sensory loss Best language: Mild to moderate, slurs some words Dysarthria: Normal Extinction or inattention: No abnormality Total NIH Stroke scale score: 2 Quality VTE Deep Vein Thrombosis/Pulmonary Embolism Present on Admission: No
[2019-02-24] MEDS: DRONEDARONE 400 MG TABLET PO (23:27)
[2019-02-24] MEDS: DEXTROSE 5%-0.9% NS 1,000 ML 84 ML IV (23:27)
--- NOTE | 2019-02-25 01:56 | PC.NURSE ---
Addendum entered by June Dillon R.N. 02/25/19 03:36: Correction on previous documentation: NIH was 2. Currently NIH is 1. No longer showing peripheral field loss but is still having difficulty with finding correct word at times. When testing sensory will state right but indicate left when left extremity/face touched. Still stating year is 1972 but immediately able to identify I said that again. Earlier had stated she was admitted because she forgot a word but now able to identify she has had a stroke. UA sent as urine POC not done in ER. BP remains high at 194/94. Original Note: 02/24/19 5614 Patient stated year was 1972 and seemed surprised when told it was 2018 then asked RN what question had been asked. Identified the date as February 14 and the day of week as Friday. Did have some word finding difficulty (unable to identify lyn on NIH assessment). Reports loss of left peripheral vision since age 5. NIH score was 1. Does seem to be forgetful, apprehensive and guarded during assessment. Breath sounds CTA with RA sat of 97%; on continuous oximetry. HRR with telemetry reading off SR w/BBB. BP elevated at 180/70 but below parameters for Labetolol. Denies nausea. BT present and abdomen is soft. Denies dysuria, frequency or urgency with urination. Able to turn self in bed and is receiving SBA when up to bathroom for safety. Denies pain but when noted to have Tens unit on back admits to chronic low back pain and states it is 4/10 but declines offer of pain medication. Wearing bilateral SCD's. CBG 102. Fall risk score is moderate and bed alarm is activated.
[2019-02-25 03:20] VITALS: BP 194/94; PULSE 83; RESP 18; TEMP 36.8; O2SAT 96
[2019-02-25 03:36] LABS: Bacteria Urine None Seen; RBC Urine None Seen (0-5/HPF); WBC Urine None Seen (0-5/HPF)
[2019-02-25 03:37] LABS: Appearance Urine UA CLEAR; Bilirubin Urine UA NEGATIVE (NEGATIVE); Color Urine UA YELLOW; Glucose Urine UA NEGATIVE (Negative); Ketones Urine UA NEGATIVE (NEGATIVE); Leukocyte Esterase Urine UA NEGATIVE (NEGATIVE); Nitrite Urine UA NEGATIVE (Negative); Occult Blood Urine UA NEGATIVE (Negative); Protein Urine UA NEGATIVE (Negative); Specific Gravity Urine UA <=1.005 (1.000-1.035); Urobilinogen Urine UA 0.2 E.U./dL (0.2)
[2019-02-25 03:45] LABS: Squamous Epithelial Cell Urine 0-1 /HPF (0-5/HPF)
[2019-02-25 03:46] LABS: Culture Indicated Urine Cult Not Indicated
[2019-02-25 05:52] LABS: Add Manual Diff / Slide Review NO; Basophils Absolute Auto 0 /uL (0-100); Basophils Percent Auto 0.3 % (0-2); Eosinophils Absolute Auto 100 /uL (0-450); Eosinophils Percent Auto 1.9 % (2-4); Hematocrit 39.6 % (36-46); Hemoglobin 13.9 g/dL (12.0-16.0); Lymphocytes Absolute Auto 2000 /uL (1100-4500); Mean Corpuscular HGB Conc 35.2 % (30-36); Mean Corpuscular Hemoglobin 32.8 PG (26-34); Mean Corpuscular Volume 93.1 fL (80-100); Monocytes Absolute Auto 600 /uL (0-900); Monocytes Percent Auto 11.2 % (3-14); Neutrophils Absolute Auto 2700 /uL (1500-7000); Neutrophils Percent Auto 50.6 % (50-75); Platelet Count 118 X10^3/uL (150-400); Red Blood Cell Count 4.26 X10^6/uL (4.0-5.2); Red Cell Distribution Width 11.7 % (11.6-14.8); White Blood Cell Count 5.4 X10^3/uL (4.5-11.0)
[2019-02-25 06:00] LABS: Hemoglobin A1C% w Est Avg Glu 5.1 % (4.0-6.0)
[2019-02-25 06:01] LABS: BUN Creatinine Ratio 12.9 (6-22); Blood Urea Nitrogen 9 mg/dL (7-17); Calcium 8.8 mg/dL (8.4-10.2); Carbon Dioxide 30 mmol/L (22-32); Chloride 106 mmol/L (98-107); Cholesterol 145 mg/dL (140-199); Estimated Glomerular Filt Rate > 60.0 mL/min (>60); Glucose 101 mg/dL (80-110); HDL Cholesterol 33 mg/dL (40-60); HEMOLYSIS < 15 (0-50); LDL Cholesterol Calculated 85 mg/dL (<100); Potassium 3.9 mmol/L (3.4-5.1); Sodium 141 mmol/L (137-145); Triglycerides 133 mg/dL (35-150)
[2019-02-25 06:34] LABS: TSH w/ Reflex to FT4 3.29 uIU/mL (0.47-4.68)
[2019-02-25 08:13] VITALS: BP 175/78; PULSE 72; RESP 17; TEMP 36.6; O2SAT 98
[2019-02-25] MEDS: ENOXAPARIN 40 MG/0.4 ML SYRINGE SUBCUT (09:26)
[2019-02-25] MEDS: ASPIRIN EC 81 MG TABLET PO (09:27)
[2019-02-25] MEDS: DRONEDARONE 400 MG TABLET PO ×2 (09:27→20:59)
--- NOTE | 2019-02-25 09:30 | ST.IPIE ---
Current Diagnoses Cerebral infarction due to embolism of unspecified cerebral artery (02/25/19) Past Medical History (Last Updated 02/24/19 @ 22:12 by AQUILINO Jones) Pacemaker (Acute Medical) Paroxysmal atrial fibrillation (Acute Medical) ST IP Initial Evaluation Report [employer] Language Evaluation Start: 02/25/19 13:36 Freq: Status: Active Protocol: Document 02/25/19 13:37 TLC (Rec: 02/25/19 13:56 TLC [id number]) Language Evaluation Session Time Visit Start Time 08:00 Visit Stop Time 09:00 Total Visit Minutes 30 Visit Information Visit Number 1 Next Note Type Next Note Type Treatment Note Past Medical History Patient History Patient was brought in for stroke like symptoms and found to have subacute stroke left hemisphere, within the parietal lobe cortex and extending into the deep white matter inferiorly on CT. 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 She discriminated between left and right without difficulty. She following one step commands correctly, but had difficulty following 2 and 3 step commands requiring extra processing time. In conversation, she answered questions appropriately, but her speech was noted to be decreased in utterance length and empty to some extent, lacking important words and not always thoroughly communicating ideas. - Expressive Language Automatic Speech Skill Level Mildly Impaired Sentence Closure Skill Level Mildly Impaired Object Naming Skill Level Mildly Impaired Expressive Language Comments Expressive Language Comments Cathleen completed confrontational tasks for common objects found around the room without difficulty. On picture naming, she had difficulty quickly coming up with the following words: violin, goat, octopus, escalator. Given extra time and a phonemic cue, she was successful in naming each item. She counted to 20 and stated the days of the week without difficulty, but perseverated on days of the week when asked to name months of the year. After a verbal prompt to name the current month, she correctly recited all 12 months. She needed extra time for phrase completion and responsive naming, again perseverating on pen after being asked what do you eat with. When describing the cookie theft picture, she accurately stated what was happening to each person in the picture, but failed to state the main idea/big picture. - Findings Language Findings Cathleen presents with mild impairments in receptive and expressive language skills. She is able to effectively communicate wants/needs and participate in a simple conversational exchange, but has difficulty understanding and communicating more complex ideas. She appears to have some impairments to insight being unable to completely describe the difficulty she was having aside from giving the example of not being able to respond to a waiter/waitress third class' question at a restaurant yesterday. No impairment in speech were observed. Recommendations Recommendations Cathleen would benefit from speech therapy services to improve receptive and expressive language skills. A cognitive evaluation is recommended as part of ongoing assessment. Treatment Goals Short Term Goals Cathleen will follow complex directions without repetitions or verbal cues with 80% accuracy. Cathleen will complete a variety of word finding tasks with 80% accuracy.
--- NOTE | 2019-02-25 10:25 | PT.IIE ---
this is to certify that I have reviewed this documentation and is involved with this pt's care. Current Diagnoses Cerebral infarction due to embolism of unspecified cerebral artery (02/25/19) Surgical History (Last Updated 02/24/19 @ 22:12 by AQUILINO Jones) History of permanent cardiac pacemaker placement (Acute) Medical History (Last Updated 02/24/19 @ 22:12 by AQUILINO Jones) Pacemaker (Acute) Paroxysmal atrial fibrillation (Acute) Physical Therapy Inpatient Evaluation/Re-Eval M1 PT/OT-IP Prior Functional Status Start: 02/25/19 13:01 Freq: NEEDED Status: Active Protocol: Document 02/25/19 10:25 MT (Rec: 02/25/19 13:43 MT [email or web address]) Medical Review Prior Functional Status Medical History Reviewed Yes Diet/Fluid Consistency Regular Communication Pt is able to make needs known Mobility and Gait Pt reports being completely independent w/ her mobility and gait Activities of Daily Living and IADL's Pt reports being independent with all ADL's Social History Household Members spouse Living Arrangements House Number of Floors (Floors) Two Floors Number of Stairs To Enter/Railing? Pt has 3 stairs to enter her home with no handrail. She guessed 24 stairs to get to the second floor of her house with no handrail. Home Environment Standard Height Toilet,Walk in Shower Employment Status Retired M2 PT-IP Current Condition Start: 02/25/19 13:01 Freq: NEEDED Status: Active Protocol: Document 02/25/19 10:25 MT (Rec: 02/25/19 13:43 MT [email or web address]) Physical Therapy Current Condition Current Condition Evaluation Date 02/25/19 Treatment Diagnosis s/p L parietal CVA w/ difficulty in walking Onset Date 02/24/19 Weight Bearing Status Weight Bearing Status Full Weight Bearing M3 PT-IP Subjective Start: 02/25/19 13:01 Freq: NEEDED Status: Active Protocol: Document 02/25/19 10:25 MT (Rec: 02/25/19 13:43 MT [email or web address]) Subjective Physical Therapy Visit Type Type Initial Evaluation Visit Start Time 10:25 Visit Stop Time 10:53 Total Visit Minutes 28 Number of DRAMATIC CRITIC Visits 0 Physical Therapy Visit Comments Patient Comments Pt was willing to participate in PT evaluation, but was annoyed and just wanted to get it over with Therapy Pain Assessment Pain When Pain Assessed At Rest Pain Present Pain Present Denied Pain M4 PT-IP Mobility and Gait Start: 02/25/19 13:01 Freq: NEEDED Status: Active Protocol: Document 02/25/19 10:25 MT (Rec: 02/25/19 13:43 MT [email or web address]) PT-Bed Mobility Assessment Supine to Sit Supine to Sit Independent Sit to Supine Sit to Supine Independent Scooting Scooting to Edge of Bed Independent Scooting Up and Down in Bed Independent PT-Transfer Assessment Sit to and From Stand Sit to and from Stand Independent Equipment Transfer Assistive Device Gait Belt Orthotic/Prosthetic Devices or Brace: No Transfers Transfer Destination Bed Transfer Technique sit to stand to initiate ambulation Transfer Ability Level of Assist Independent Comments Mobility Comments Pt was found in bed prior to start of eval. BP was assessed prior to initiating movement and was found to be 162/85. Pt perfomred supine to sit with independence. Pt' s BP was assessed in sitting and foud to be 174/85. Pt performed sit to stand independently without use of AD to initiate ambulation. Following ambulation, pt performed independent stand> sit>supine. Gait Assessment Gait Gait Assistance Required: Independent Distance (Feet) 500 Able to Maintain Weight Bearing Status Yes During Gait Assistive Devices Assistive Device None,Gait Belt Orthotic/Prosthetic Devices or Brace: No Gait Deviations General Gait Pattern Within Normal Limits Comments Gait Comments Pt ambulated independently 500 ft without use of AD. She required no cues for safety and had no gait deviations outside of normal limits. Stair Climbing Assessment Evaluation Level of Assist On Stairs Independent Devices Stair Climbing Assistive Devices None Technique/Endurance Stair Climbing Direction Ascend and Descend Stair Climbing Technique Step Over Step Number of Steps Climbed 3 Query Text: Stair Climbing Set # Repetitions (reps) 2 Comments Stair Climbing Comments Pt ascended/descended 2 sets of 3 stairs safely and independently without use of AD. Pt use B handrail for first set and then did not use a handrail for the second set of stairs. PT-Balance Assessment Sitting Balance and Reactions Static Sitting Balance Ability Normal Dynamic Sitting Balance Ability Normal Standing Balance and Reactions Static Standing Balance Ability Normal Dynamic Standing Balance Ability Good Device Used none Functional Assessments Functional Tests Tinetti Balance and Gait Assessment 28/28 Other Functional Tests Performed Pt's Tinetti score indiates low risk of falls M5 PT-IP Objective Assessments Start: 02/25/19 13:01 Freq: NEEDED Status: Active Protocol: Document 02/25/19 10:25 MT (Rec: 02/25/19 13:43 MT [email or web address]) Orientation Orientation/Cognition Level of Alertness Alert Orientation Name,Date,Day of Week Language Function Ability No Deficits Noted Safety Awareness Understands Safety Issues Memory Description No Deficits Noted Gross Range of Motion Lower Extremity ROM Assessment Within Functional Limits Strength Lower Extremity Strength Assessment Within Functional Limits Coordination Assessment Gross Coordination Gross Coordination WNL Sensation Assessment Sensation Gross Sensation WNL M6 PT-IP Treatment Start: 02/25/19 13:01 Freq: NEEDED Status: Active Protocol: Document 02/25/19 10:25 MT (Rec: 02/25/19 13:43 MT [email or web address]) Physical Therapy Treatment Education Education Provided Safety M7 PT-IP Assessment and Plan Start: 02/25/19 13:01 Freq: NEEDED Status: Active Protocol: Document 02/25/19 10:25 MT (Rec: 02/25/19 13:43 MT [email or web address]) PT Summary Assessment and Plan Potential Rehabilitation Potential Excellent Status of Condition at Evaluation Stable Summary Assessment Summary Pt was independent with her bed mobility, sit to stand, and gait without use of AD. She has no deviations or decreased safety with her gait and ambulated 500ft. She completed stair training with independence and without use of AD. Tinetti balance test was completed and pt was found to have low risk of falls. Kept pt with SBA for gait and transfers with nursing in order to manage IV line. Pt reports that she feels like she is completely back to normal since her CVA symptoms. She will be safe to discharge home and does not require assistance with her mobility or ADL's, so she does not require physical therapy services at this time. Nursing will be informed that no further physical therapy is needed. Frequency of Treatment Frequency Of Treatment Discharge Recommendations To Nursing Amount of Assist Needed Standby Assistance Discharge Recommendations PT Discharge Recommendations Home
[2019-02-25 12:47] VITALS: BP 154/72; PULSE 72; RESP 16; TEMP 36.8; O2SAT 95
--- NOTE | 2019-02-25 14:07 | OT.IP.EVAL ---
Current Diagnoses Cerebral infarction due to embolism of unspecified cerebral artery (02/25/19) Past Medical History (Last Updated 02/24/19 @ 22:12 by AQUILINO Jones) Pacemaker (Acute) Paroxysmal atrial fibrillation (Acute) Surgical History (Last Updated 02/24/19 @ 22:12 by AQUILINO Jones) History of permanent cardiac pacemaker placement (Acute) Occupational Therapy Inpatient Evaluation/Re-Eval M1 PT/OT-IP Prior Functional Status Start: 02/25/19 13:01 Freq: NEEDED Status: Active Protocol: Document 02/25/19 14:07 PJM (Rec: 02/25/19 18:37 PJ [id number]) Medical Review Prior Functional Status Medical History Reviewed Yes Diet/Fluid Consistency Regular Communication WNL Mobility and Gait Pt reports being completely independent w/ her mobility and gait without a device. Activities of Daily Living and IADL's Pt reports being independent with all ADL's. 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 Prior Functional Level (Other details) Pt likes to [email or web address] and [employer] and volunteers at [employer]. Social History Household Members spouse Living Arrangements House Number of Floors (Floors) Two Floors Number of Stairs To Enter/Railing? Pt has 3 stairs to enter her home with no handrail. She full flight of stairs to get to the second floor of her house with no handrail. Pt lives on [facility]. Home Environment Standard Height Toilet,Walk in Shower Employment Status Retired M2 OT-IP Current Condition Start: 02/25/19 18:11 Freq: Status: Active Protocol: Document 02/25/19 14:07 PJM (Rec: 02/25/19 18:37 PJ [id number]) Occupational Therapy Current Condition Current Condition Evaluation Date 02/25/19 Treatment Diagnosis language and functional cognition deficits s/p L parietal stroke Diagnosis Onset Date 02/24/19 M3 OT- IP Subjective and Pain Start: 02/25/19 18:11 Freq: Status: Active Protocol: Document 02/25/19 14:07 PJM (Rec: 02/25/19 18:37 PJ [email or web address]) OT- Subjective Occupational Therapy Visit Type Type Initial Evaluation Visit Start Time 13:13 Visit Stop Time 14:07 Total Visit Minutes 54 Notes Pt's observing this session. Occupational Therapy Visit Comments Patient/Caregiver Goals to go home tomorrow OT Pain Assessment Pain When Pain Assessed After Treatment Pain Present Pain Present Denied Pain M4 OT- IP ADL's Start: 02/25/19 18:11 Freq: Status: Active Protocol: Document 02/25/19 14:07 PJM (Rec: 02/25/19 18:37 [facility] [id number]) OT [id number] General Evaluation Self-Feeding Ability Independent OT ADL-Grooming General Evaluation Grooming Ability Independent Comments OT Grooming Comments washing hands at sink, needed reminder after using bathroom OT ADL-Oral Care Comments Oral Care Comments did not occur this session OT ADL-Dressing General Eval Upper Body Dressing Ability Independent Lower Body Dressing Ability Independent OT ADL-Toileting General Evaluation Toileting Ability Independent OT ADL-Bathing Comments OT Bathing Comments did not occur M5 OT- IP IADL's Start: 02/25/19 18:11 Freq: Status: Active Protocol: Document 02/25/19 14:07 PJM (Rec: 02/25/19 18:37 [facility] [id number]) OT-Instrumental Activities of Daily Living Deficits IADL Deficits Identified Deficits Home Safety Awareness Awareness of Need for Assistance at Home Decreased Awareness Home Safety Comments will provide 24 hr supervision/assist at d/c PRN Medication Management Medication Management Caregiver Provides Supervision Medication Management Comments due to language and possible errors reading medication labels Money Management Money Management Caregiver Provides Supervision Money Management Comments due to possible number substitutions with bill paying Meal Preparation Meal Preparation Caregiver Provides Supervision Meal Preparation Comments due to possible errors reading directions/recipes Silver Plater Silver Plater Caregiver Provides Assist Silver Plater Comments pt/ share program management specialist, to assist PRN Driving Driving Caregiver Provides Assist Driving Comments recommend no driving at present due to slow scanning speed and slow speed of processing on Trailmaking B test M6 OT- IP Functional Cognition Start: 02/25/19 18:11 Freq: Status: Active Protocol: Document 02/25/19 14:07 PJM (Rec: 02/25/19 18:37 [facility] [id number]) Cognitive Factors Limiting Selfcare Function Cognitive Ability Level of Alertness Alert Patient Orientation Name,Month,Date,Place Attention Span Ability Capable of Focused Attention, Capable of Sustained Attention Ability to Follow Commands Able to Follow One Step Commands Safety Awareness Underestimates Need for Assistance Problem Solving Ability Needs Assist to Identify Solutions Cognitive Comments Cognitive Assessment Comments Pt has word finding deficits, some of which she is aware of and some not. Pt also seems to have some receptive language deficits and has difficulty with multi step instructions. Pt made errors on number placement and unable to place hands on clock drawing. Pt completed Trailmaking A in 74 sec (norm is <39 sec). Pt completed Trails B in 249 sec (norm is < 85 sec).Pt is far slower than than 180 sec recommended by AMA as concern for driving. Persons taking longer than 180 sec on Trails B may be at higher risk of auto accident in following year. Pt demonstrating difficulty with multi step directions, divided attention and visual scanning on Trails B test. OT- Vision and Hearing OT- Hearing Assessment OT- Hearing Assessment WFL OT- Vision Assessment Visual Acuity WFL,Glasses For Reading Visual Attentiveness WFL Occular Pursuits WFL Visual Ram Impaired Visual Spacial Neglect Not Applicable Vision Assessment Comments Pt has decreased L eye peripheral vision. She reports that she has had this since age 5 but unable to give any further details. Pt denies any new vision changes since stroke and none were identified. M7 OT- IP Mobility and Balance Start: 02/25/19 18:11 Freq: Status: Active Protocol: Document 02/25/19 14:07 PJM (Rec: 02/25/19 18:37 PJ [id number]) OT- Bed Mobility Assessment Rolling Type of Rolling Roll to Right Level of Assistance Independent Supine to Sit Supine to Sit Assist Independent Sit to Supine Sit to Supine Assist Independent Scooting Scooting to Edge of Bed Independent OT-Transfer Assessment Sit to and From Stand Sit to and from Stand Independent Transfers Transfer Ability Independent Technique Transfer Destination Bed,Chair,Toilet Transfer Technique Stand Step Pivot Devices Transfer Assistive Devices None Comments Mobility Comments Pt has power bed at home and does not lay flat in bed due to chronic low back pain. OT- Gait Assessment Gait Gait Assistance Required: Independent Distance (Feet) 40 Assistive Devices Assistive Device None Comments Gait Ability Comments Pt has been cleared for independent gait by P.T. OT- Balance Assessment Sitting Balance and Reactions Static Sitting Balance Ability Good Dynamic Sitting Balance Ability Good Standing Balance and Reactions Static Standing Balance Ability Good Dynamic Standing Balance Ability Good M8 OT- IP Objective Assessments Start: 02/25/19 18:11 Freq: Status: Active Protocol: Document 02/25/19 14:07 PJM (Rec: 02/25/19 18:37 PJM [id number]) OT Gross Range of Motion Upper Extremity Range of Motion Assessment Within Functional Limits OT Strength Upper Extremity Strength Assessment Within Functional Limits OT- Coordination Assessment Comments Coordination Comments BUE WNL OT-Muscle Tone Assessment Muscle Tone WNL Yes OT Sensation Assessment Comments Summary Comments BUE WNL Edema Edema Absent M9 OT- IP Assessment and Plan Start: 02/25/19 18:11 Freq: Status: Active Protocol: Document 02/25/19 14:07 PJM (Rec: 02/25/19 18:37 PJM [id number]) OT Summary Assessment and Plan Potential Rehabilitation Potential Good Analytic Complexity at Evaluation Low Summary OT Impairments Functional Cognition Assessment Summary Low complexity OT assessment completed on this 73 yr old woman admitted with language deficits and found to have L parietal sub acute stroke as seen on CT. Pt presents with cognitive and expressive/ receptive language deficits as described above. No new deficits identified in vision, BUE sensorimotor function or self care skills. Provided education to pt/ re: potential home safety issues related to pt's current language/cognitive deficits. states he can provide 24 hr assist at home including supervision during IADLS and he will provide transport for pt at present. Recommend pt not drive at present. Plan 1 additional OT visit for further functional cognition assessment. Pt will likely d/c home tomorrow with 24 hr assist and out pt follow up. Pt/ willing to come from [facility] 1x week for out pt therapy. Goals OT-Other Goals Pt to score WNL on ACL cognitive screening as needed for all IADLS. Days to Meet Goals 1 Frequency of Treatment Frequency Of Treatment Once a Day Treatment Plan OT Treatment Plan Functional Cognition Training Discharge Recommendations OT Discharge Recommendations Home with 24/ Assist
--- NOTE | 2019-02-25 14:25 | CM.IDA ---
Initial DCP Assessment Note: Pt is a 73 yo female, resident of [place]. Pt admitted after CVA w/expressive aphasia. PCP: Jacobo Castillo Payer: Medicare/[facility] out of [facility] Reviewed chart. Attempted to meet w/pt but echo being done at bedside and RN explained pt has been uncharacteristically agitated today. Spouse at bedside explains this is not pt's baseline. Pt able to ambulate indp. PROGRAM SCHEDULE CLERK and OT consults are pending today. P: DC likely back home tomorrow w/supportive family via pov pending recommendations from therapy team Following closely for further assessment of DC needs. KATHI Sanders
[2019-02-25 16:39] VITALS: BP 150/85; PULSE 71; RESP 15; TEMP 37; O2SAT 96
--- NOTE | 2019-02-25 18:41 | P.PN_ITS ---
Subjective Subjective Date Patient Seen: 02/25/19 Time Patient Seen: 10:00 Interval history: Cathleen Whitney is a 73-year-old right handed female with a history significant for atrial fibrillation, status post pacemaker implantation for bradycardia in the remote past, on hormone replacement therapy who presented to the emergency department for difficulty speaking. She is seen for follow-up today for an acute embolic stroke which was confirmed on CT imaging. Her only deficit remains expressive aphasia. She denies any complaints of chest pain, palpitations, shortness of breath, lower extremity edema. She has had no numbness or tingling, and no weakness. She has had no slurred speech. She frequently gets frustrated when she is unable to find the right word. Exam Vital Signs (past 8 hours): - 02/25/19 12:47 02/25/19 16:39 Temperature 98.2 F 98.6 F Pulse Rate 72 71 Respiratory Rate 16 15 Blood Pressure 154/72 H 150/85 H Pulse Oximetry 95 96 Oxygen Delivery Method Room Air Oxygen Flow Rate 0 Narrative Exam Narrative: GENERAL APPEARANCE: Well developed, well nourished, in no acute distress, would appear frustrated at times during the encounter when she had trouble finding the right word. SKIN: Inspection of the skin reveals no rashes, ulcerations or petechiae. HEENT: The sclerae were anicteric and conjunctivae were pink and moist. Extraocular movements were intact and pupils were equal, round with normal accommodation. External inspection of the ears and nose showed no scars, lesions, or masses. Lips, teeth, and gums showed normal mucosa. The oral mucosa, hard and soft palate, tongue and posterior pharynx were unremarkable. NECK: Supple and symmetric. There was no thyroid enlargement, and no tenderness, or masses were felt. CHEST: Normal AP diameter and normal contour without any kyphoscoliosis. LUNGS: Auscultation of the lungs revealed no wheezes, rhonchi, or rales. CARDIOVASCULAR: There was a regular rate and rhythm without any murmurs, gallops, rubs. Peripheral pulses were 2+ and symmetric. ABDOMEN: Soft and nontender with normal bowel sounds. No ascites was noted. MUSCULOSKELETAL: There was no tenderness or effusions noted. Muscle strength and tone were normal. EXTREMITIES: No cyanosis, clubbing or edema. NEUROLOGIC: Alert and oriented x 3 (eventually said 2018, however initial 2012, 2022, then closed her eyes and said 2019). Expressive aphasia. No slurred speech. Normal affect. Gait was normal. Strength is +5/5 in the Upper Extremities and Lower Extremities Bilaterally. Sensation to touch was normal bilaterally and in her face as well. Objective Labs Result Diagrams: 02/25/19 05:05 02/25/19 05:05 Labs: Laboratory Results - last 24 hr 02/24/19 02/25/19 02/25/19 16:00 03:25 05:05 WBC 5.4 RBC 4.26 Hgb 13.9 Hct 39.6 MCV 93.1 MCH 32.8 MCHC 35.2 RDW 11.7 Plt Count 118 L Neut % (Auto) 50.6 Lymph % (Auto) 36.0 [place] % (Auto) 11.2 Eos % (Auto) 1.9 L Baso % (Auto) 0.3 Neut # (Auto) 2700 Lymph # (Auto) 2000 [place] # (Auto) 600 Eos # (Auto) 100 Baso # (Auto) 0 Sodium Potassium Chloride Carbon Dioxide BUN Creatinine Estimated GFR BUN/Creatinine Ratio Glucose Hemoglobin A1c Calcium Magnesium 2.2 Triglycerides Cholesterol LDL Cholesterol, Calc HDL Cholesterol TSH Urine Color Yellow Urine Appearance Clear Urine pH 7.0 Ur Specific [place] <=1.005 Urine Protein Negative Urine Glucose (UA) Negative Urine Ketones Negative Urine Occult Blood Negative Urine Nitrate Negative Urine Bilirubin Negative Urine Urobilinogen 0.2 Ur Leukocyte Esterase Negative Urine RBC None seen Urine WBC None seen Ur Squamous Epith Cells 0-1 /hpf Urine Bacteria None seen Ur Culture Indicated? Cult not indicated 02/25/19 02/25/19 02/25/19 05:05 05:05 05:05 WBC RBC Hgb Hct MCV MCH MCHC RDW Plt Count Neut % (Auto) Lymph % (Auto) [place] % (Auto) Eos % (Auto) Baso % (Auto) Neut # (Auto) Lymph # (Auto) [place] # (Auto) Eos # (Auto) Baso # (Auto) Sodium 141 Potassium 3.9 Chloride 106 Carbon Dioxide 30 BUN 9 Creatinine 0.70 Estimated GFR > 60.0 BUN/Creatinine Ratio 12.9 Glucose 101 Hemoglobin A1c 5.1 Calcium 8.8 Magnesium Triglycerides Cholesterol LDL Cholesterol, Calc HDL Cholesterol TSH 3.29 Urine Color Urine Appearance Urine pH Ur Specific [place] Urine Protein Urine Glucose (UA) Urine Ketones Urine Occult Blood Urine Nitrate Urine Bilirubin Urine Urobilinogen Ur Leukocyte Esterase Urine RBC Urine WBC Ur Squamous Epith Cells Urine Bacteria Ur Culture Indicated? 02/25/19 05:05 WBC RBC Hgb Hct MCV MCH MCHC RDW Plt Count Neut % (Auto) Lymph % (Auto) [place] % (Auto) Eos % (Auto) Baso % (Auto) Neut # (Auto) Lymph # (Auto) [place] # (Auto) Eos # (Auto) Baso # (Auto) Sodium Potassium Chloride Carbon Dioxide BUN Creatinine Estimated GFR BUN/Creatinine Ratio Glucose Hemoglobin A1c Calcium Magnesium Triglycerides 133 Cholesterol 145 LDL Cholesterol, Calc 85 HDL Cholesterol 33 L TSH Urine Color Urine Appearance Urine pH Ur Specific [place] Urine Protein Urine Glucose (UA) Urine Ketones Urine Occult Blood Urine Nitrate Urine Bilirubin Urine Urobilinogen Ur Leukocyte Esterase Urine RBC Urine WBC Ur Squamous Epith Cells Urine Bacteria Ur Culture Indicated? Assessment & Plan Assessment & Plan narrative: This is a 73-year-old female patient who presents to the ER with 4 hours of expressive aphasia secondary to left anterior parietal embolic CVA. 1. Embolic stroke, acute versus subacute, present on admission, active. -last known normal was 11:00 a.m. this morning. Symptoms persisted prompting the patient's bring her to the ER at 3:39. Outside of tPA window and -head CT and CT angio of the head and neck finds it left anterior parietal lobe infarct extending deep and to the white matter inferiorly with embolic appearing calcified plaque. -tele neuro was consulted through the ER and is not a candidate for tPA or interventional procedure. -patient does have history of atrial fibrillation and does describe episode of chest pain last night but denies chest pain or palpitations today, patient will be on telemetry. -patient on HRT, will discontinue Premphase. -patient received aspirin 324 mg in the emergency department. Given embolic source based on CT imaging will elect to start the patient on anticoagulation with Eliquis tonight. Lipid panel with LDL of 85, A1c 5.1%, and normal TSH. -contraindication for MRI with an implanted pacemaker. CT has adequately defined her stroke injury. -echocardiogram with normal ejection fraction, probable diastolic dysfunction. -Patient passed bedside swallow evaluation, Speech therapy consult appreciated. -patient does not work require PT based on my evaluation, however will obtain OT evaluation 2. Paroxysimal atrial fibrillation, chronic, in sinus rhythum on admission, ac tive -patient reports episode of chest pain last night. Denies chest pain or palpations, no shortness of breath or nausea today. -12 lead EKG in sinus rhythm with ventricular pacing. -echocardiogram in the morning. -continue home regimen of dronedarone 400 mg twice daily. -will initiate apixaban this evening. 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 Elevated blood pressure without diagnosis of hypertension, unknown if acute or chronic, present on admission, active. -blood pressure on admission is 188/86 subsequent reading on the floor 157/98. -at this time will allow permissive hypertension. -labetalol 10 mg IV as needed for systolic pressure greater than 220 or diastolic greater than 120. -consider beta-jose therapy in the morning if patient remains hypertensive 4. Hypoglycemia, acute, present on admission, resolved. -possibly reactive in setting of stroke VTE prophylaxis: SCDs and Lovenox Diet: As per speech therapy, continue heart healthy diet Patient is admitted to the hospital due to the severity of her symptoms and risk for potential complications and adverse events. She is admitted under inpatient status given the acute stroke finding on CT. She could be possibly discharged as early as tomorrow if she continues to do well with therapies. Quality VTE Deep Vein Thrombosis/Pulmonary Embolism Present on Admission: No
[2019-02-25 19:58] VITALS: BP 157/79; PULSE 65; RESP 15; TEMP 37; O2SAT 94
[2019-02-25] MEDS: APIXABAN 5 MG TABLET PO (20:59)
[2019-02-26 00:10] VITALS: BP 151/91; PULSE 95; RESP 18; TEMP 36.9; O2SAT 95
--- NOTE | 2019-02-26 00:32 | PC.NURSE ---
Patient with expressive aphasia. Could not correctly state age, year, place or reason for admission. On NIH picture card states the glove is a flag. Gets irritated with any cares/assessment provided. NIH score was 2. Breath sounds diminished but CTA with RA sat of 95%. HRR; on telemetry and 0000 reading not yet documented but was SR w/BBB and prolonged QT earlier. BP improved but still elevated at 151/91. Denies nausea. BT present and abdomen is soft. Denies dysuria, frequency, urgency. Able to move self in bed. When out of bed provided SBA for safety. Denies pain. Refusing to wear SCD's despite information re: DVT risk/prevention so reminded to ankle wave. Fall risk score is moderate; bed alarm is activated for safety.
[2019-02-26 04:55] VITALS: BP 157/84; PULSE 91; RESP 18; TEMP 36.5; O2SAT 96
[2019-02-26 07:08] LABS: Add Manual Diff / Slide Review NO; Basophils Absolute Auto 0 /uL (0-100); Basophils Percent Auto 0.4 % (0-2); Eosinophils Absolute Auto 100 /uL (0-450); Eosinophils Percent Auto 2.1 % (2-4); Hematocrit 42.7 % (36-46); Hemoglobin 14.8 g/dL (12.0-16.0); Lymphocytes Absolute Auto 1800 /uL (1100-4500); Lymphocytes Percent Auto 36.9 % (25-40); Mean Corpuscular HGB Conc 34.8 % (30-36); Mean Corpuscular Hemoglobin 32.5 PG (26-34); Mean Corpuscular Volume 93.5 fL (80-100); Monocytes Absolute Auto 400 /uL (0-900); Neutrophils Absolute Auto 2600 /uL (1500-7000); Neutrophils Percent Auto 51.6 % (50-75); Platelet Count 122 X10^3/uL (150-400); Red Blood Cell Count 4.56 X10^6/uL (4.0-5.2)
[2019-02-26 07:21] LABS: BUN Creatinine Ratio 18.6 (6-22); Blood Urea Nitrogen 13 mg/dL (7-17); Carbon Dioxide 29 mmol/L (22-32); Chloride 103 mmol/L (98-107); Estimated Glomerular Filt Rate > 60.0 mL/min (>60); Glucose 94 mg/dL (80-110); HEMOLYSIS < 15 (0-50); Potassium 3.9 mmol/L (3.4-5.1); Sodium 138 mmol/L (137-145)
[2019-02-26 08:17] VITALS: BP 161/71; PULSE 65; RESP 16; TEMP 36.8; O2SAT 95
[2019-02-26] MEDS: SODIUM CHLORIDE 0.9% FLUSH 10 ML IV (09:47)
[2019-02-26] MEDS: DRONEDARONE 400 MG TABLET PO (09:47)
[2019-02-26] MEDS: APIXABAN 5 MG TABLET PO (09:47)
--- NOTE | 2019-02-26 10:51 | PC.NURSE ---
0830- Pt is A&Ox3, she does have some expressive aphasia, not confusion.. She knows what she has to say but words are not coming out correctly. Up with 1 PA to use the bathroom. Pt wants to go home, just into see patient and she is going to catch the [address] to [place]. in room now and visiting. NIH Stroke Scale number a 1. Patient has a flat affect but is kind and appropriate with all care. She does not have any pain or discomfort at this time. Resting comfortably at this time.
--- NOTE | 2019-02-26 10:58 | PM.DS.1 ---
History of Present Illness History of Present Illness Date Patient Seen: 02/26/19 Time Patient Seen: 10:00 Chief complaint: spouse concerned of speech deficits and stroke Narrative: As per AQUILINO Jones: Ms Cathleen Whitney is a 73-year-old right handed female with a history significant for atrial fibrillation, status post pacemaker implantation, on hormone replacement therapy who presents to to the emergency department for difficulty speaking. The patient's noticed difficulty with word finding this morning at 11:00 a.m. that persisted without improvement prompting him to bring her to the ER at 3:39 p.m.. The patient did report an episode chest pain last night for which she did not seek attention. She denies complaints headaches or vision changes has no chest pain at this time and denies palpitations. She has no nausea vomiting or abdominal pain. She describes no difficulty walking or complaints of numbness or tingling. She denies changes in bowel or bladder habits. Upon arrival to the ER the patient had a temperature of 98.4?, heart rate of 81, hypertensive 188/86, respirations 16 saturating 100% on room air. The patient underwent a CT of the head followed by a CT angio of the head and neck which identifies a sub acute CVA of the left anterior parietal lobe extending deep into the white matter inferiorly with an embolic appearing calcified plaque. The patient had glucose evaluated upon arrival which is found to be 62 for which she received 25 g of dextrose IV. On CBC she has a white count of 6.0, hemoglobin of 15.5 and hematocrit of 446 and platelets of 113. On coagulation she has a PT of 11.0 with INR 1.0 and PTT of 28. Her electrolytes are all within limits with a BUN of 14 and creatinine 0.7. Troponin is evaluated and found to be 0.019 had EKG which reveals sinus rhythm with a rate of 79 with ventricular pacing. The patient is given aspirin 324 mg p.o. in the ER. She is admitted to the medicine service for further evaluation of stroke. Discharge Providers Provider Date of admission: 02/25/19 10:35 Discharge Date: 02/26/19 Primary care physician: Jacobo Castillo MD Consults: 02/24/19 19:47 Consult to Discharge Planning Routine Comment: Consult to Occupational Therapy Evaluate & Treat Comment: left anterior parietal CVA Physician Instructions: Evaluate and treat Consult to Physical Therapy Evaluate & Treat Comment: left anterior parietal CVA Physician Instructions: Evaluate and Treat Consult to Speech Therapy Evaluate & Treat Comment: left anterior parietal CVA Physician Instructions: Evaluate and treat Discharge provider: Juan Ramon Sawant DO Summary Hospital Course Discharge Diagnosis: 1. Embolic stroke, acute versus subacute, present on admission, active. 2 Chronic atrial fibrillation, unspecified 3. Elevated blood pressure without diagnosis of hypertension, unknown if acute or chronic, present on admission, active. 4. Hypoglycemia, acute, present on admission, resolved. Hospital Course: This is a 73-year-old female patient who presents to the ER with 4 hours of expressive aphasia secondary to left anterior parietal embolic CVA. She was discharged home on appropriate secondary prevention. 1. Embolic stroke, acute versus subacute, present on admission, active. -last known normal was 11:00 a.m. day of admission. Symptoms persisted prompting the patient's bring her to the ER at 3:39. Outside of tPA window and with stroke scale of 1 on arrival. -head CT and CT angio of the head and neck finds it left anterior parietal lobe infarct extending deep and to the white matter inferiorly with embolic appearing calcified plaque. -tele neuro was consulted through the ER and is not a candidate for tPA or interventional procedure. -patient does have history of atrial fibrillation and does describe episode of chest pain last night but denies chest pain or palpitations today, patient had no events on telemtry. -patient on HRT, will discontinue Premphase. -patient received aspirin 324 mg in the emergency department. Given embolic source based on CT imaging will elect to start the patient on anticoagulation with Eliquis tonight. Lipid panel with LDL of 85, A1c 5.1%, and normal TSH. -contraindication for MRI with an implanted pacemaker. CT has adequately defined her stroke injury. -echocardiogram with normal ejection fraction, probable diastolic dysfunction. -Patient passed bedside swallow evaluation, Speech therapy consulted and patient placed on a diet. -patient does not work require PT based on my evaluation, OT evaluation complete. 2. Chronic atrial fibrillation, unspecified - uncertain as to why patient is on this regimen, no cardiology records for review and the patient has a history of a pacemaker for unspecified reasons. She was in normal sinus rhythm and not on anticoagulation. -patient reported episode of chest pain day prior to admission. Denies chest pain or palpations, no shortness of breath or nausea today. -12 lead EKG in sinus rhythm with ventricular pacing. -echocardiogram as noted above -continue home regimen of dronedarone 400 mg twice daily. -patient was started on apixaban. 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 Elevated blood pressure without diagnosis of hypertension, unknown if acute or chronic, present on admission, active. -consider outpatient therapy for HTN upon discharge, patient resistant to additional medications at this time. 4. Hypoglycemia, acute, present on admission, resolved. -possibly reactive in setting of stroke Status at Discharge Cognitive/behavioral status at discharge: oriented Time Spent with Patient Time spent: Greater than 30 minutes Exam Vital Signs (past 8 hours): - 02/26/19 04:55 02/26/19 08:17 Temperature 97.7 F 98.2 F Pulse Rate 91 H 65 Respiratory Rate 18 16 Blood Pressure 157/84 H 161/71 H Pulse Oximetry 96 95 Oxygen Delivery Method Room Air Oxygen Flow Rate 0 Narrative Exam Narrative: GENERAL APPEARANCE: Well developed, well nourished, in no acute distress, would appear frustrated at times during the encounter when she had trouble finding the right word. SKIN: Inspection of the skin reveals no rashes, ulcerations or petechiae. HEENT: The sclerae were anicteric and conjunctivae were pink and moist. Extraocular movements were intact and pupils were equal, round with normal accommodation. External inspection of the ears and nose showed no scars, lesions, or masses. Lips, teeth, and gums showed normal mucosa. The oral mucosa, hard and soft palate, tongue and posterior pharynx were unremarkable. NECK: Supple and symmetric. There was no thyroid enlargement, and no tenderness, or masses were felt. CHEST: Normal AP diameter and normal contour without any kyphoscoliosis. LUNGS: Auscultation of the lungs revealed no wheezes, rhonchi, or rales. CARDIOVASCULAR: There was a regular rate and rhythm without any murmurs, gallops, rubs. Peripheral pulses were 2+ and symmetric. ABDOMEN: Soft and nontender with normal bowel sounds. No ascites was noted. MUSCULOSKELETAL: There was no tenderness or effusions noted. Muscle strength and tone were normal. EXTREMITIES: No cyanosis, clubbing or edema. NEUROLOGIC: Alert and oriented x 3 (eventually said 2019, however initial 2012, 2022, then closed her eyes and said 2019). Expressive aphasia. No slurred speech. Normal affect. Gait was normal. Strength is +5/5 in the Upper Extremities and Lower Extremities Bilaterally. Sensation to touch was normal bilaterally and in her face as well. Objective Labs Result Diagrams: 02/26/19 06:40 02/26/19 06:40 Labs: Laboratory Results - last 24 hr 02/26/19 02/26/19 06:40 06:40 WBC 5.0 RBC 4.56 Hgb 14.8 Hct 42.7 MCV 93.5 MCH 32.5 MCHC 34.8 RDW 12.0 Plt Count 122 L Neut % (Auto) 51.6 Lymph % (Auto) 36.9 [place] % (Auto) 9.0 Eos % (Auto) 2.1 Baso % (Auto) 0.4 Neut # (Auto) 2600 Lymph # (Auto) 1800 [place] # (Auto) 400 Eos # (Auto) 100 Baso # (Auto) 0 Sodium 138 Potassium 3.9 Chloride 103 Carbon Dioxide 29 BUN 13 Creatinine 0.70 Estimated GFR > 60.0 BUN/Creatinine Ratio 18.6 Glucose 94 Calcium 9.0 Discharge Plan Discharge Plan Patient Disposition: Home Discharge comment: You were admitted to the hospital with an embolic stroke. You were started on a blood thinner. You should follow up with your primary care provider and fine grade operator. Discharge orders & Medications Prescriptions: New Eliquis 5 mg Tablet 5 mg PO BID 30 Days Qty: 60 RF: 0 Continued Multaq 400 mg Tablet 400 mg PO BID RF: 0 loperamide [Imodium A-D] 2 mg Capsule 2 cap PO Q2-4H PRN (Reason: Diarrhea) RF: 0 fluticasone propionate 50 mcg/actuation [place],Suspension 1 spray Intranasal PRN PRN (Reason: Allergy Symptoms) RF: 0 Discontinued Premphase 0.625 mg (14)/ 0.625mg-5mg(14) tablet 1 tab PO DAILY RF: 0 Follow up/Referrals: Jacobo Castillo MD [Primary Care Provider] - Discharge Health Status Health Concerns: Embolic CVA. Diet/Activity/Treatments Diet: Diet as Tolerated Activity: As tolerated Visit Report/Discharge Packet Instructions: Progress in Stroke Prevention, DI for Stroke-Ischemic Visit Report Forms: Patient Portal/API, Stroke Signs & Symptoms Discharge Data Primary Care Provider: Jacobo Castillo Discharges patient from system. Discharge Date/Time: 02/26/19 12:55 Quality VTE Deep Vein Thrombosis/Pulmonary Embolism Present on Admission: No
--- NOTE | 2019-02-26 11:07 | SLP.IPNOTE ---
No treatment provided as patient will be discharged home soon; however, I spoke with patient about ongoing recommendations for either home health speech therapy or outpatient speech therapy to address receptive and expressive language impairments. Patient is in agreement.
== END 2019-02-26 12:55 | disposition home or self-care (01) | DRG 65 ==
LOC: ED 18:52 → AC 23:25
PROVIDERS: Admitting Provider Nurse Practitioner Adult Health; Emergency Provider Emergency Medicine; Family Provider Family Medicine; PCP Family Medicine; Visit Provider Nurse Practitioner Adult Health
DX: I63.412 Cerebral infarction due to embolism of left middle cerebral artery (principal); I48.20 Chronic atrial fibrillation, unspecified; E16.2 Hypoglycemia, unspecified; R03.0 Elevated blood-pressure reading, without diagnosis of hypertension; R47.01 Aphasia; Z95.0 Presence of cardiac pacemaker; Z87.891 Personal history of nicotine dependence
CPT/HCPCS: 36415; 70450; 70496; 70498; 80048; 80061; 81001; 82962; 83036; 83735; 84443; 84484; 85025; 85610; 85730; 92523; 93005; 93010; 93306; 96361; 96374; 97161; 97165; 97535; 99285; G0378; J1650; Q9967

== ENCOUNTER 2019-04-22 10:30 | Outpatient (RCR) | payer MEDICARE, BC, SELFPAY ==
[2019-02-24 19:23] VITALS: BMI 28.7
--- NOTE | 2019-04-09 18:04 | ST.IP.CME ---
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 Castillo Reason for Referral Recent CVA Evaluation Assessment Type Cognitive-Linguistic Past Medical History Patient History Ms Cathleen Whitney is a 73-year-old right handed female with a history significant for atrial fibrillation, status post pacemaker implantation, on hormone replacement therapy who presented on 02/25/19 to to the emergency department for difficulty speaking. The patient's noticed difficulty with word finding this morning at 11:00 a.m. that persisted without improvement prompting him to bring her to the ER at 3:[address] head [address] and head CT and CTA indicated an embolic stroke, located at left anterior parietal lobe extending deep and to the white matter inferiorly with embolic appearing calcified plaque. Cathleen was discharged home on 02/26/19. Previous Therapy Previous Speech-Language Therapy Yes: While inpatient x1 - Informal Assessment Receptive Language Normal Yes Expressive Language Normal Mild word-finding observed Articulation Normal Yes Formal Assessment Standardized Test Cognitive Linguistic Quick Test + (CLQT+) Administration Complete Results The CLQT+ is designed to assess 6 cognitive domains: Attention, Memory, Executive Functions, Language, Visuospatial Skills and a Clock Drawing. Additionally the CLQT+ evaluates the pt's language skills re: s/sx of aphasia. Cathleen completed all tasks within the session. Her results indicated that for 5 of the 6 subtests, her scores were rated WNL. Her overall Composite Rating was WNL. However, Cathleen demonstrated mild cognitive impairment for Memory and Language skills. Her rating scores for Non- Linguistic Cognition was WNL as was her score for Clock Drawing. Cathleen's performance with the Linguistic/Aphasia aspect of the CLQT+ noted a moderate severity rating. Further assessment is indicated. - Cognition Orientation Skill Level Mildly Impaired Attention Skill Level Mildly Impaired Problem Solving/Reasoning/Judgment Skill Level Mildly Impaired Divergent Naming Skill Level Moderately Impaired Clock Drawing Skill Level WNL - Memory Short Term Memory Skill Level Moderately Impaired Immediate Recall Skill Level Mildly Impaired Story Recall Skill Level Moderately Impaired - Recommendations Recommendations Additional assessment of Aphasia, specifically word- finding skills is recommended. Enrollment in speech therapy to address memory skills, developing strategies for continued ADL functioning. Referrals Suggested Primary Care Physician Total Time Full Evaluation Time 60
--- NOTE | 2019-04-09 18:05 | ST.OPPOC ---
Physical, Occupational & Speech Therapy [facility] Visit Care Team Role Provider Type Jacobo Castillo MD Attending Provider Non-Staff Family Provider Primary Care Provider Address: [facility], [place], [address] Speech Pathology Plan of Care Plan of Care Dates 04/09/19-07/09/19 Electronically Signed by: MATTY Oconnell 04/09/19 [id number] Please Sign and Return: I have reviewed this Plan of Care and certify that the skilled therapy services above are required to meet the patient?s needs. Physician Signature Date Printed Name and Credentials Clinical Instructor Signature Printed Name and Credentials
--- NOTE | 2019-04-15 18:10 | ST.OPTN ---
Visit Care Team Role Provider Type Jacobo Castillo MD Attending Provider Non-Staff Family Provider Primary Care Provider Address: 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 Treatment Note CONTINUOUS PILLOWCASE CUTTER Treatment Note Start: 04/09/19 17:33 Freq: Status: Active Protocol: Document 04/15/19 15:25 LNK (Rec: 04/15/19 18:10 LNK [id number]) Speech Pathology Treatment Note Session Time Visit Start Time 13:30 Visit Stop Time 14:10 Total Visit Minutes 40 Visit Information Visit Number 1 Plan of Care Dates 04/09/19-07/09/19 Setting Treatment Setting Outpatient Care Visit Type Note Type Re-Evaluation Next Note Type Next Note Type Treatment Note General Information General Information Ms Cathleen Whitnye is a 73-year-old right handed female with a history significant for atrial fibrillation, status post pacemaker implantation, on hormone replacement therapy who presented on 02/25/19 to to the emergency department for difficulty speaking. The patient's noticed difficulty with word finding. On 04/09/19, Cathleen had a linguistic-cognitive assessment which indicated difficulties with memory and word-finding. 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 Subjective Identification Type Name,Picture Identification Reconciled With Intake Sheet Others Present Family Chief Complaint(s) Language,Cognitive Rehab Expectation/Goals: Patient Goals To be able to remember names, have fewer difficulties with word-finding Patient Knowledge/Awareness of CONTINUOUS PILLOWCASE CUTTER Role Excellent in Treatment Objective Short Term Goals Pt will improve her ability to remember names of familiar people, per pt report. Pt will reduce the frequency of word-finding difficulty, per pt report. Treatment Activities In order to assess Cathleen's word-finding deficits, the [place] Word Test was administered. Cathleen scored 57 /60 words . She needed cueing (function of item, phonemic cue and written word choice) for some words. Cathleen's score on t he BWT was determined to be WNL. Her concerns are with overall word-finding and with remembering names. These two areas will be targeted in therapy in addition to her memory skills as determined by the CLQT+ administered last week Assessment Impairments Identified Aphasia,Memory - Mcc, Memory - Working Patient/Caregiver Understanding Excellent Plan Amount of Therapy Recommended 2-3 Months Frequency of Treatment Once a Week Length of Session 45 Minutes
--- NOTE | 2019-04-23 11:40 | ST.OPTN ---
Visit Care Team Role Provider Type Jacobo Castillo MD Attending Provider Non-Staff Family Provider Primary Care Provider Address: [address] , [address], [place], [address] RESOURCE FORESTER Treatment Note RESOURCE FORESTER Treatment Note Start: 04/09/19 17:33 Freq: Status: Active Protocol: Document 04/22/19 11:27 LNK (Rec: 04/23/19 11:40 LNK [id number]) Speech Pathology Treatment Note Session Time Visit Start Time 10:30 Visit Stop Time 11:30 Total Visit Minutes 60 Visit Information Visit Number 2 Plan of Care Dates 04/09/19-07/09/19 Setting Treatment Setting Outpatient Care Visit Type Note Type Treatment Note Next Note Type Next Note Type Treatment Note General Information General Information Ms Cathleen Whitney is a 73-year-old right handed female with a history significant for atrial fibrillation, status post pacemaker implantation, on hormone replacement therapy who presented on 02/25/19 to to the emergency department for difficulty speaking. The patient's noticed difficulty with word finding. On 04/09/19, Cathleen had a linguistic-cognitive assessment which indicated difficulties with memory and word-finding. 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 Subjective Identification Type Name,Picture Identification Reconciled With Intake Sheet Others Present Family Chief Complaint(s) Language,Cognitive Rehab Expectation/Goals: Patient Goals To be able to remember names, have fewer difficulties with word-finding Patient Knowledge/Awareness of RESOURCE FORESTER Role Excellent in Treatment Objective Short Term Goals Pt will improve her ability to remember names of familiar people, per pt report. Pt will reduce the frequency of word-finding difficulty, per pt report. Treatment Activities Cathleen was feeling a little frustrated by the her forgetfulness and facial memory. 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 Reassured her that she is ~ 4-6 weeks out from her stroke and that there is time for continued improvement. Discussed the grieving process relative to her stroke - she admitted she was still frustrated. Targeted relaxing when she has difficulty with words, etc. Discussed the self stress she places on herself as well as the effect that stress/emotion on her ability to retrieve a word. Opportunities arose x4 during conversation to practice the relax/calm anxiety. She effectively retrieved the word with minimal ST assist. This helped Cathleen achieve a new perspective. 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 Patient/Caregiver Understanding Excellent Plan Amount of Therapy Recommended 2-3 Months Frequency of Treatment Once a Week Length of Session 45 Minutes Provided Patient/Caregiver Instruction Home Exercise Program, Questions/Concerns Therapy Recommendations Continue with Current Program
--- NOTE | 2019-08-19 14:01 | ST.OPTN ---
Visit Care Team Role Provider Type Jacobo Castillo MD Attending Provider Non-Staff Family Provider Primary Care Provider Address: 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 Cathleen stated that she hopes to return in the future.
== END 2019-10-13 10:23 ==
LOC: SP 10:30
PROVIDERS: Family Provider Family Medicine; PCP Family Medicine; Visit Provider Family Medicine
DX: I63.40 Cerebral infarction due to embolism of unspecified cerebral artery (principal)
CPT/HCPCS: 92507; 96125

== ENCOUNTER → 2020-01-27 08:44 | Outpatient (CLI) | payer MEDICARE, BC, SELFPAY ==
[2019-02-24 19:23] VITALS: BMI 28.7
== END ==
PROVIDERS: Family Provider Family Medicine; PCP Family Medicine; Visit Provider Specialist
DX: N39.0 Urinary tract infection, site not specified (principal); R31.9 Hematuria, unspecified; Z87.440 Personal history of urinary (tract) infections; R39.9 Unspecified symptoms and signs involving the genitourinary system
CPT/HCPCS: 51798; 81002; 87086; 99214

== ENCOUNTER → 2020-03-01 10:37 | Outpatient (CLI) | payer MEDICARE, BC, SELFPAY ==
[2019-02-24 19:23] VITALS: BMI 28.7
[2020-03-01 11:21] LABS: Alanine Aminotransferase 24 IU/L (<35); Albumin 4.2 g/dL (3.5-5.0); Albumin Globulin Ratio 1.4 (1.0-2.8); Alkaline Phosphatase 68 U/L (38-126); Aspartate Aminotransferase 40 IU/L (14-36); BUN Creatinine Ratio 19.7 (6-22); Bilirubin Total 1.6 mg/dL (0.2-1.3); Blood Urea Nitrogen 12 mg/dL (7-17); Calcium 9.2 mg/dL (8.4-10.2); Carbon Dioxide 32 mmol/L (22-32); Chloride 102 mmol/L (98-107); Estimated Glomerular Filt Rate > 60.0 mL/min (>60); Glucose 105 mg/dL (80-110); HEMOLYSIS 21 (0-50); Potassium 3.5 mmol/L (3.4-5.1); Sodium 141 mmol/L (137-145); Total Protein 7.2 g/dL (6.3-8.2)
--- NOTE | 2020-03-01 12:39 | DI.CT.S_ITS ---
PROCEDURE: CT CHEST ABD PEL W CON INDICATIONS: Abnormal weight loss TECHNIQUE: After the administration of oral and intravenous contrast, 5 mm thick sections acquired from the lung apices to the symphysis. 5 mm coronal and sagittal reformats were performed, with additional 7 mm coronal MIP reformats through the lungs. For radiation dose reduction, the following was used: automated exposure control, adjustment of mA and/or kV according to patient size. COMPARISON: [facility], CT, THORAX WITHOUT CONTRAST, 09/20/2015, 14:54. FINDINGS: Image quality: Excellent. CHEST: Lungs and pleura: Moderate to severe centrilobular emphysema. There are biapical scars, as well as right middle lobe and lingula scars. No acute airspace opacities. No pleural effusions or pneumothorax. Central and peripheral airways appear patent and normal in caliber. Mediastinum: There is a cardiac pacemaker. Heart size is normal. No pericardial effusion. Mild coronary artery atherosclerosis. No mediastinal or hilar adenopathy by size criteria. Thoracic aorta and central pulmonary arteries are normal in size. Esophagus is normal in caliber. No hiatal hernia. Chest wall: No axillary or supraclavicular adenopathy by size criteria. Thyroid gland is normal. ABDOMEN: Solid organs: A 0.8 cm low-density nodule near the gallbladder fossa is most likely a cyst. Liver is normal in size and enhancement. Gallbladder is normal. Common bile duct is prominent measuring up to 9 mm. Pancreas enhances normally. Spleen is normal in size and enhancement. No adrenal nodules. Kidneys demonstrate normal size and enhancement, without hydronephrosis. Peritoneum and bowel: There is thickening at the gastric antrum. Bowel loops demonstrate normal wall thickness and caliber. There are severe sigmoid diverticulosis. No findings to suggest acute diverticulitis. A moderate amount of stool in colon. No free fluid or air. Nodes and vessels: No retroperitoneal or mesenteric adenopathy by size criteria. Aorta and inferior vena cava are normal in size. Miscellaneous: Tiny fat containing umbilical hernia. PELVIS: Genitourinary: Uterus is unremarkable. Ovaries are not well seen. No adnexal mass. No free fluid in pelvis. Bladder wall thickness is normal. Miscellaneous: No inguinal hernias or adenopathy. Bones: A dense sclerotic lesion in the left humeral head is most likely a bone island. No vertebral body compression fractures. Multiple old right rib fractures are noted. IMPRESSION: 1. Diverticulosis without diverticulitis. 2. Moderate amount of stool in colon. 3. Thickening at gastric antrum may be secondary to artifact or peptic ulcer disease. Recommend clinical correlation. 4. Mild dilation of common bile duct. No gallstones or biliary duct stones. No intrahepatic biliary dilation. Please correlate with serum bilirubin. 5 [id number] emphysema. Dictated by: Toño Dubose M.D. on 03/01/2020 at 17:48 Approved by: Toño Dubose M.D. on 03/01/2020 at 18:24
== END ==
PROVIDERS: Family Provider Family Medicine; PCP Family Medicine; Referring Provider Family Medicine; Visit Provider Physician Assistant
DX: R63.4 Abnormal weight loss (principal); R42 Dizziness and giddiness; R19.4 Change in bowel habit; R63.0 Anorexia; K83.8 Other specified diseases of biliary tract; J43.2 Centrilobular emphysema; I25.10 Atherosclerotic heart disease of native coronary artery without angina pectoris; K57.30 Diverticulosis of large intestine without perforation or abscess without bleeding; Z95.0 Presence of cardiac pacemaker
CPT/HCPCS: 36415; 71260; 74177; 80053; Q9967

== ENCOUNTER → 2020-07-03 13:51 | Outpatient (CLI) | payer MEDICARE, BC, SELFPAY ==
[2019-02-24 19:23] VITALS: BMI 28.7
[2020-07-03 20:49] LABS: COVID19 - ORCAS (NP or Nasal) Negative (Negative)
== END ==
PROVIDERS: Family Provider Family Medicine; PCP Family Medicine; Visit Provider Family Medicine
DX: Z20.822 Contact with and (suspected) exposure to COVID-19 (principal)
CPT/HCPCS: U0003

== ENCOUNTER → 2020-07-14 12:48 | Outpatient (CLI) | payer MEDICARE, BC, SELFPAY ==
[2019-02-24 19:23] VITALS: BMI 28.7
[2020-07-14 21:14] LABS: COVID19 - ORCAS (NP or Nasal) Negative (Negative)
== END ==
PROVIDERS: Family Provider Family Medicine; PCP Family Medicine; Visit Provider Physician Assistant Medical
DX: Z01.812 Encounter for preprocedural laboratory examination (principal); Z20.822 Contact with and (suspected) exposure to COVID-19
CPT/HCPCS: U0003